=== PATIENT | male | born 1950 | race Caucasian/White ===

== ENCOUNTER 2023-08-22 11:26 | Observation (INO) | payer MEDICARE, OTHER, SELFPAY ==
[2023-08-16 10:18] VITALS: BMI 38.9
--- NOTE | 2023-08-16 12:15 | HPS.HSE ---
Family Physician
<Becky Hannah PA-C - Last Filed: 08/16/23 12:40>
-
Family Physician: NO INTERVIEW UNKNOWN
Chief Complaint
<Becky Hannah PA-C - Last Filed: 08/16/23 12:40>
-
Coronary artery disease. Aortic stenosis.
History of Present Illness
The patient is a 73 year old male presenting today after recent complaints of exertional chest pressure, shortness of breath, and fatigue. He reports that his symptoms have been occurring over the last 8 months. His symptoms are primarily
noted when he walks his dog on an uphill path he typically takes without difficulty previously. He does have a history of coronary artery disease for which he underwent a PCI with stent placement in 1996. He also was diagnosed with aortic stenosis
previously through echocardiogram. His last echocardiogram in April 2023 demonstrated moderate aortic stenosis; this study, however, was deemed technically difficult. Given these diagnoses, it is recommended he undergo a right and left cardiac
catheterization for further symptom evaluation. He denies any current complaints today such as chest pain or shortness of breath at rest, palpitations, nausea, vomiting, diarrhea, lightheadedness, dizziness, cough, sore throat, or fever.
Medical History
<Becky Hannah PA-C - Last Filed: 08/16/23 12:40>
Past Medical History
Past Medical History: Reports Other
Additional Past Medical History:
1. Coronary artery disease/myocardial infarction, status post PCI with stent 1996.
2. Aortic stenosis, moderate per echocardiogram 04/2023.
3. Hypertension.
4. Hyperlipidemia.
5. Moderate tricuspid regurgitation.
6. Asthma, mild and intermittent.
7. Questionable obstructive sleep apnea.
8. Chronic postnasal drip.
9. Colon polyps.
10. Diverticulosis with remote diverticulitis.
11. Hemorrhoids.
12. Non-insulin dependent diabetes with neuropathy.
13. Erectile dysfunction.
14. Obesity, BMI 38.9.
15. Remote history of tobacco abuse.
Past Surgical History: Reports Other
Additional Past Surgical History:
1. PCI with stent.
2. Right wrist tendon repair.
3. Pilonidal cystectomy.
4. Varicocelectomy.
5. Vasectomy.
6. Tonsillectomy.
7. Right vitrectomy.
8. Colonoscopy with polypectomy x4.
Social History
Tobacco: Former Smoker (Former 1 and 1/2 pack per day cigarette smoker who quit tobacco altogether in 1981. )
Alcohol: Other (Reports consuming 1 beer monthly. )
Personal:
Living: Other (He lives with his and daughter in a 2 story home. )
Family History
Family History: Not pertinent
Allergies / Home Medications
Allergy/Medication List:
Home medications:
1. Albuterol sulfate 2 puffs inhaled every 6 hours as needed.
2. Alpha lipoic acid 600 mg p.o. daily.
3. Aspirin 81 mg p.o. daily.
4. Atorvastatin 40 mg p.o. every evening.
5. Berberine 1 capsule p.o. every evening.
6. Cholecalciferol 25 mcg p.o. daily.
7. Cyanocobalamin 500 mcg p.o. daily.
8. Fluticasone-salmeterol 1 inhalation daily as needed.
9. Flonase 1 spray intranasal daily as needed.
10. Lutein 20 mg p.o. daily.
11. Magnesium citrate 500 mg p.o. daily.
12. Metformin 500 mg p.o. twice a day.
13. Metoprolol Succinate 25 mg p.o. daily.
14. [place] 3 1 tablet p.o. daily.
15. Probiotic 60 billion cells p.o. daily.
16. Tart Overton Extract 300 mg p.o. every evening.
Allergies: Penicillin.
Review of Systems
<Becky Hannah PA-C - Last Filed: 08/16/23 12:40>
-
A 12 point ROS was completed and negative except as noted: Yes
Physical Exam
<Becky Hannah PA-C - Last Filed: 08/16/23 12:40>
Vital Signs
Blood pressure 142/79. Heart rate 61. Respirations 18. Pulse ox 96% on room air.
Height 5 feet, 6 inches. Weight 109.3 kg. BMI 38.9.
Physical Exam
General: Well Developed, Well Nourished and No Apparent Distress
HEENT: NormoCephalic, Moist mucous membranes, Atraumatic and PERRLA
Respiratory: Clear
Cardiac: Regular Rhythm and Murmur (Systolic murmur)
GI: Soft, Non Tender, Non Distended and Other (Obese. )
Musculoskeletal: Normal Gait & Station
Skin: Warm and Dry
Neuro: AO x 3 and Nonfocal/grossly intact
Laboratory Results
<Becky Hannah PA-C - Last Filed: 08/16/23 12:40>
-
DIAGNOSTIC STUDIES as of 08/16/2023: White blood cell count 8.0. Hemoglobin 15.4. Platelet count 208. Sodium 138. Potassium 4.9. BUN 21. Creatinine 1.0. Glucose 129. Calcium 9.3. AST 39. ALT 31. Albumin 3.8.
EKG 08/16/2023: Normal sinus rhythm. T wave abnormality, consider lateral ischemia.
Echocardiogram 04/25/2023: Normal left ventricular systolic function. Left ventricular ejection fraction is 60%. Moderate aortic stenosis. Mild tricuspid regurgitation. Estimated pulmonary artery pressure of 25-30 mmHg. Compared to prior study of
Jul 2021, aortic stenosis has progressed.
Impression/Plan
<Becky Hannah PA-C - Last Filed: 08/16/23 12:40>
-
IMPRESSION/PLAN:
1. Coronary artery disease and aortic stenosis: The patient is in need of a right and left cardiac catheterization with Dr. Mitch Mcgraw on 08/22/2023. The benefits and risks of the procedure have been explained to the patient. The patient
understands these risks and wishes to proceed. He is aware to continue his Aspirin up to and including the morning of his procedure. He will hold diabetic medications the morning of his catheterization.
<Mitch Mcgraw, DO - Last Filed: 08/22/23 07:57>
-
IMPRESSION/PLAN:
1. Coronary artery disease and aortic stenosis: The patient is in need of a right and left cardiac catheterization with Dr. Mitch Mcgraw on 08/22/2023. The benefits and risks of the procedure have been explained to the patient. The patient
understands these risks and wishes to proceed. He is aware to continue his Aspirin up to and including the morning of his procedure. He will hold diabetic medications the morning of his catheterization.
Attestation: I have seen and examined the patient. I can confirm Ms. Hannah's findings and I agree with her assessment and plan as documented. 73-year-old male with known aortic valve stenosis and remote PCI for coronary artery disease
presenting with progressive symptoms, concerning for accelerating coronary artery disease versus progression of aortic valve stenosis. We will proceed with right and left heart catheterization, coronary angiography and aortic valve interrogation.
[2023-08-22] VITALS (24 sets, daily range): BP systolic 129–179; BP diastolic 69–109; BMI 38.8
[2023-08-22 08:17] LABS: Glucose - Point of Care 143 mg/dl (70-99)
[2023-08-22] MEDS: LOW STRENGTH ASPIRIN 81 MG PO (08:20)
[2023-08-22] MEDS: NSS 327 ML IV (08:22)
--- NOTE | 2023-08-22 09:55 | ITS.CL.CATH ---
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
Cardiac Catheterization
Procedure Report:
CARDIAC CATHETERIZATION REPORT
Date of Procedure: 08/22/2023
Referring: Garfield Frost M.D.
Indication: Coronary artery disease, aortic valve stenosis, accelerating chest pressure and shortness of breath.
PROCEDURE:
1. Right heart catheterization.
2. Left heart catheterization.
3. Coronary angiography.
4. Aortic valve interrogation.
ACCESS:
6 [place] right radial artery.
5 [place] right antecubital vein.
CATHETERS:
1. 5 [place] balloon wedge.
2. 5 [place] JL 3.5.
3. 5 [place] JR4.
4. 6 [place] Gibran dual-lumen pigtail.
HEMODYNAMIC DATA
Weight (kg): 108.9
AO (s/d/x mmHg): 156/83/115
LV (s/x mmHg): 200/16 (A wave to 28)
PCWP (a/v/x mmHg): 23//16
PA (s/d/x mmHg): 47/20/29
RV (s/x mmHg): 50/11
RA (a/v/x mmHg):
SVC SvO2 (%): 70.6
PA SvO2 (%): 71.8
SaO2 (%): 94.1
Hbg (g/dL): 14.0
CO (L/min): 5.52
CI (L/min/m2): 2.55
TPG (mmHg): 13
PVR (Yang Units): 2.36
SVR (dynes*seconds*cm^-5): 1507
AVO2 Diff (Volume %): 4.25
AV gradient (x, mmHg): 43.41
AV area (cm2): 0.7
LEFT VENTRICULOGRAPHY: Not performed.
CORONARY ANGIOGRAPHY
Dominance: Right.
Left Main: Normal size, trifurcating vessel. There is no coronary artery disease.
LAD: Normal size vessel giving rise to 1 significant diagonal. There are luminal irregularities in the body of the LAD. A patent stent is observed in the mid diagonal. There is approximately 70% in-stent restenosis within this stented segment.
Ramus: Small size, sub-1 mm vessel.
Circumflex: Large size, nondominant vessel that gives rise to 1 large obtuse marginal supplying the majority of the lateral wall. There are minor luminal irregularities.
RCA: Large size, dominant vessel with a significant posterolateral arcade. There is a 90% lesion in the mid RPDA.
INTERVENTIONS
None.
Closure Device: Vascular band for the right radial artery, manual pressure for the right antecubital vein.
Radiation dose (mGy): 486.32
DAP (cm2.Gy): 36.6367
Fluoroscopy time (minutes): 5.3
Sedation time (minutes): 51
CONCLUSIONS:
1. Right dominant circulation with minor luminal irregularities throughout, a patent stent in the mid diagonal with 70% in-stent restenosis and a 90% mid RPDA lesion.
2. Severe aortic valve stenosis (mean gradient 43.41 mmHg, aortic valve area 0.7 cm�).
3. Mildly elevated filling pressures (LVEDP = 16 mmHg, PCWP = 16 mmHg at 108.9 kg) with evidence of diastolic dysfunction (A wave to 28 mmHg).
4. Recent mechanical fall with limited weightbearing on the right leg, concerning for significant trauma.
RECOMMENDATIONS:
1. Expectant management after cardiac catheterization via right radial/antecubital approach.
2. Limited weight bearing on the right wrist for one week.
3. TAVR workup.
4. The patient's symptoms are reminiscent of both heart failure as well as angina. He would likely benefit from both PCI as well as TAVR, though this is deferred at this time due to his recent fall.
5. The patient will obtain x-rays of his leg, possible referral to the emergency room versus direct admission for ambulatory dysfunction.
6. Continue aggressive secondary prevention.
Copy to: Garfield Frost M.D., Jose Booker M.D.
Mitch Mcgraw DO, FACC, FACP
[2023-08-22] MEDS: NSS 1000 IV (10:00)
--- NOTE | 2023-08-22 10:05 | CONSULT.STRU ---
Addendum entered and electronically signed by ABRIL Ashford 09/27/23 09:51:
Patient discussed at SDM meeting today. Patient seen by urology and plan is for left nephrectomy after TAVR. Will not plan on PCI as patient does not have anginal symptoms. If patient develops angina will re-evaluate need to treat. Will schedule
TAVR.
Addendum entered and electronically signed by ABRIL Ashford 09/13/23 09:17:
Patient reviewed at the SDM meeting by the Heart Team. Incidental finding of a 5.8cm left renal mass reviewed. Patient is scheduled for additional CT imaging on 09/15 and Urology Consult on 09/18. Team discussed timing of cardiac intervention given
suspicion for renal cell carcinoma. Will wait to discuss with Urology after consult on . When time to proceed with TAVR will utilize transfemoral approach with a 26mm S3 valve. Will update patient of discussion.
Original Note:
Consultation
-
Date/Time Consultation Requested: 08/22/2023 0930
Date/Time Consultation Performed: 08/22/2023 1015
Requesting Provider: Mitch Mcgraw DO
Performing Provider: ABRIL Breen
Reason for Consultation: /TAVR
Patient History
Physicians
Family Physician: Jose Booker MD
Outpatient Sales Property Manager: Garfield Frost MD
Primary Sales Property Manager: Garfield Frost MD
History of Present Illness
Mr. 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 Echocardiogram from 04/25/2023 is notable for and AV P/M 52/31, DONAVON 1.0, EF 60% PAP 25-30. His cardiac
catheterization is significant for AV gradient (x, mmHg):43.41, AV area (cm2): 0.7 LAD:�Normal size vessel giving rise to 1 significant diagonal.� There are luminal irregularities in the body of the LAD.� A patent stent is observed in the mid
diagonal.� There is approximately 70% in-stent restenosis within this stented segment. RCA:Large size, dominant vessel with a significant posterolateral arcade.� There is a 90% lesion in the mid RPDA. Unfortunately, Mr. Rodriguez lost his footing
and experienced a mechanical fell yesterday fracturing his (R) fibula. He denies any syncope, pre-syncope, or dizziness prior to the fall. He does state that he has experienced SALMON that has been progressive for 6 months.
Discussed the pathophysiology and treatment options of aortic stenosis including SAVR and TAVR. Explained the evaluation process comprising of CT scan, CT surgical consult, dental clearance, and a heart team discussion. Will need to discuss timing
of PCI and TAVR. TAVR booklet, prescriptions, appointments, and contact information given to patient. He will be admitted to the hospital for management of fracture. Allowed for and answered questions at bedside.
Past Medical History
Past Medical History: Asthma, CAD, HTN, Hypercholesterolemia, NIDDM and [place] (Stents in 1996)
peripheral neuropathy, morbid obesity, metabolic syndrome, diverticulosis, ED, colonic polyps, sleep apnea
Past Surgical History
Past Surgical History: Tonsilectomy
pilomidal cyst, vasectomy, varicoceal repair
Dental History
UTD dental care with [facility]) [phone]. Will fax dental clearance form
Family History
Mother: Cause of (heart diseas)
Father: Cause of (cancer)
Social History
Alcohol: Occasional
Drug: None
Tobacco: Former Smoker
Personal:
Living: With Spouse
Allergies
Allergy/AdvReac Type Severity Reaction Status Date / Time
Penicillins Allergy Unknown Verified 08/16/23 10:37
Home Medications
Medication Instructions Recorded Confirmed Type
Probiotic 60 billion cells PO DAILY 08/13/23 08/22/23 History
Tart Overton Extract 300 mg PO QPM 08/13/23 08/22/23 History
albuterol sulfate 90 mcg/actuation 2 puff inhalation Q6HPRN PRN SOB, 08/13/23 08/22/23 History
aerosol inhaler Wheezes
aspirin 81 mg tablet,delayed 81 mg PO DAILY 08/13/23 08/22/23 History
release
atorvastatin 40 mg tablet 40 mg PO QPM 08/13/23 08/22/23 History
berberine-herbal comb no.18 capsule 1 cap PO QPM 08/13/23 08/22/23 History
cholecalciferol (vitamin D3) 25 25 mcg PO DAILY 08/13/23 08/22/23 History
mcg (1,000 unit) capsule (Vitamin
D3)
fluticasone 250 mcg-salmeterol 50 1 inh inhalation DAILYPRN PRN SOB, 08/13/23 08/22/23 History
mcg/dose blistr powdr for Wheezes
inhalation
magnesium citrate 125 mg capsule 500 mg PO DAILY 08/13/23 08/22/23 History
metformin 500 mg tablet 500 mg PO BID 08/13/23 08/22/23 History
metoprolol succinate 25 mg 25 mg PO DAILY 08/13/23 08/22/23 History
tablet,extended release 24 hr
omega 4-tjl-dtm-fish oil 1 tab PO DAILY 08/13/23 08/22/23 History
alpha lipoic acid 600 mg tablet 600 mg PO DAILY 08/16/23 08/22/23 History
cyanocobalamin (vitamin B-12) 500 500 mcg PO DAILY 08/16/23 08/22/23 History
mcg tablet
fluticasone propionate 50 1 spray intranasal DAILYPRN PRN 08/16/23 08/22/23 History
mcg/actuation nasal congestion
spray,suspension
lutein 20 mg tablet 20 mg PO DAILY 08/16/23 08/22/23 History
STS%
STS %: 1.48
Review of Systems
-
History Source: Patient
General: Reports No Symptoms
HEENT: Reports No Symptoms
Respiratory: Reports SOB and SALMON
Cardiac: Reports Chest Pain
Abdomen/GI: Reports No Symptoms
Neurological: Reports No Symptoms
Physical Exam
Vital Signs
Temp 98.2 F 08/22/23 08:00
Temp route: Temporal 08/22/23 08:00
Pulse 60 08/22/23 08:00
Resp Rate 14 08/22/23 08:00
Blood pressure 156/87 08/22/23 08:00
Blood pressure extremity used: Left upper arm 08/22/23 08:00
Position: Sitting 08/22/23 08:00
SaO2 97 08/22/23 08:00
Oxygen Mode of Delivery Room air 08/22/23 08:00
Can the patient verbally communicate their pain? Yes 08/22/23 08:00
Pain scale ratin 08/22/23 08:00
Actual Weight 108.862 kg 08/22/23 08:21
Body Mass Index (BMI) 38.8 08/22/23 08:21
Labs
08/16/2023:
HH: 15.4/45.1
plt: 208K
BUN/Creatinine: 21/1.0
GFR: >60
albumin 3.8
Diagnostic Studies
Echocardiogram 04/25/2023:
Normal left ventricular systolic function. Left ventricular ejection fraction
�is 60%
Aortic Valve
�Calcified aortic valve. Moderate aortic stenosis. Peak gradient 52mmHg/Mean
�gradient 31mmHg - using an LVOT of 1.9cm the estimated aortic valve area is
�1.0cm2.� Mild aortic regurgitation
Cardiac catheterization 08/22/2023:
CONCLUSIONS:
1.� Right dominant circulation with minor luminal irregularities throughout, a patent stent in the mid diagonal with 70% in-stent restenosis and a 90% mid RPDA lesion.
2.� Severe aortic valve stenosis (mean gradient 43.41 mmHg, aortic valve area 0.7 cm�).
3.� Mildly elevated filling pressures (LVEDP = 16 mmHg, PCWP = 16 mmHg at 108.9 kg) with evidence of diastolic dysfunction (A wave to 28 mmHg).
4.� Recent mechanical fall with limited weightbearing on the right leg, concerning for significant trauma.
RECOMMENDATIONS:
1. Expectant management after cardiac catheterization via right radial/antecubital approach.
2. Limited weight bearing on the right wrist for one week.
3.� TAVR workup.
4.� The patient's symptoms are reminiscent of both heart failure as well as angina.� He would likely benefit from both PCI as well as TAVR, though this is deferred at this time due to his recent fall.
5.� The patient will obtain x-rays of his leg, possible referral to the emergency room versus direct admission for ambulatory dysfunction.
6.� Continue aggressive secondary prevention.
Exam
General: Well Developed (obese)
Respiratory: Clear (anteriorly)
Cardiac: Regular Rhythm and Murmur (III/ AFSHIN)
Rectal: Deferred by Provider
Skin: Warm
Psych: Calm
Assessment / Plan
-
Aortic Stenosis
Continue TAVR evaluation
Trend creatinine after contrast (RX given)
TAVR CT scan ()
CT surgical consult ([facility] 09/03)
Frailty testing and KCCQ12 at consult
Dental clearance
Continue ASA
Heart team discussion
CAD: Right dominant circulation with minor luminal irregularities throughout, a patent stent in the mid diagonal with 70% in-stent restenosis and a 90% mid RPDA lesion.
Will need to discuss timing of PCI
Continue aspirin/BB/statin
DM
on metformin (hold for 48H post contrast)
t/c special education paraeducator consult
will get A1c with patts
Data Reviewed
-
EKG: Tracing Personally Visualized and interpreted (NSR with lateral TWI) and Report Reviewed by me
Mounter Saxophones: Report Reviewed by me and Discussed with Physician
Echo: Report Reviewed by me
Radiology: Image Personally Visualized and interpreted ((R) LE x-rays + for fibula fx), Report Reviewed by me ((R) LE x-rays) and Discussed with Physician
Labs: Labs Reviewed by me
Old Records: Reviewed (Dr. Frost's office visit)
Critical Care Time (in minutes): 45
--- NOTE | 2023-08-22 10:52 | W.PN.UPDATE ---
Update Note
Progress Note Update
73yo WM s/p cardiac cath for Severe eval for TAVR. He had a mechanical fall yesterday afternoon on the cement at his house. Today he noted swelling and severe pain with inability to bear weight on his Right leg. He has b/l knee abrasions and
right ankle pain. He did not seek medical evaluation after the fall as he was coming today for his elective cath procedure. Post cath he was sent for Xrays of knee, tib/fib and ankle. He dose have a fracture of the proximal neck of the fibula.
Lucien, his and pt were made aware of the findings. He will be admitted to Hospitalist service with orthopedic evaluation, PT/OT. He will continue outpt w/u for TAVR and timing of PCI will depend on when he can tolerate DAP. He should continue
ASA, statin and hold Metformin 48 hours post cath.
--- NOTE | 2023-08-22 11:00 | HPS.HSE ---
Family Physician
-
Family Physician: Jose Booker
Chief Complaint
-
Right leg pain
History of Present Illness
73-year-old male came in today for elective cardiac catheterization and procedure completed. Postprocedure he was complaining of right lateral leg pain. X-rays confirmed a right fibular fracture. He admits to falling yesterday and injuring his
leg. Denies history of significant fractures. Has been walking at home with a cane since the fall.
Medical History
Past Medical History
Past Medical History: Reports Other
Additional Past Medical History:
CAD/MO
Severe aortic stenosis
Essential hypertension
Hyperlipidemia
Mild intermittent asthma
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
Colon polyps
Diverticulosis
DM2
Internal/external hemorrhoids
Past Surgical History: Reports Other
Additional Past Surgical History:
Right wrist tendon repair
Pilonidal cystectomy
Vasectomy
Varicocelectomy
Right vitrectomy
Tonsillectomy
Polypectomy
Social History
Tobacco: Former Smoker
Alcohol: Occasional
Drug: None
Personal:
Living: With Family
Family History
Family History: Not pertinent
Allergies / Home Medications
Allergies reflects when Allergies were last updated in [facility].
Home Medications with original date entered in [facility]
Allergy/Medication List:
Allergies
Allergy/AdvReac Type Severity Reaction Status Date / Time
Penicillins Allergy Unknown Verified 08/16/23 10:37
Home Medications
Probiotic 60 billion cells PO DAILY 08/13/23
Tart [place] Extract 300 mg PO QPM 08/13/23
albuterol sulfate 90 mcg/actuation aerosol inhaler 2 puff inhalation Q6HPRN PRN SOB, Wheezes 08/13/23
aspirin 81 mg tablet,delayed release 81 mg PO DAILY 08/13/23
atorvastatin 40 mg tablet 40 mg PO QPM 08/13/23
berberine-herbal comb no.18 capsule 1 cap PO QPM 08/13/23
cholecalciferol (vitamin D3) 25 mcg (1,000 unit) capsule (Vitamin D3) 25 mcg PO DAILY 08/13/23
fluticasone 250 mcg-salmeterol 50 mcg/dose blistr powdr for inhalation 1 inh inhalation DAILYPRN PRN SOB, Wheezes 08/13/23
magnesium citrate 125 mg capsule 500 mg PO DAILY 08/13/23
metformin 500 mg tablet 500 mg PO BID 08/13/23
metoprolol succinate 25 mg tablet,extended release 24 hr 25 mg PO DAILY 08/13/23
omega 7-gof-zsu-fish oil 1 tab PO DAILY 08/13/23
alpha lipoic acid 600 mg tablet 600 mg PO DAILY 08/16/23
cyanocobalamin (vitamin B-12) 500 mcg tablet 500 mcg PO DAILY 08/16/23
fluticasone propionate 50 mcg/actuation nasal spray,suspension 1 spray intranasal DAILYPRN PRN congestion 08/16/23
lutein 20 mg tablet 20 mg PO DAILY 08/16/23
Review of Systems
-
History Source: Patient
A 12 point ROS was completed and negative except as noted: Yes
Musculoskeletal: Reports Other (Right lateral leg pain)
Physical Exam
Vital Signs
Vital Signs
Temp Pulse Resp BP Pulse Ox
98.2 F 60 14 156/87 97
08/22/23 08:00 08/22/23 08:00 08/22/23 08:00 08/22/23 08:00 08/22/23 08:00
Physical Exam
General: Well Developed, Well Nourished, No Apparent Distress and Comfortable
HEENT: NormoCephalic, Anicteric and Moist mucous membranes
Respiratory: Wheezes (Faint bilateral expiratory wheezing)
Cardiac: S1/S2 and Regular Rhythm
GI: Soft, Non Tender and Non Distended
Genito-urinary: Deferred by me
Musculoskeletal: No Clubbing, No Cyanosis, No Edema and Other (Mild tenderness to right lateral leg.)
Skin: Warm and Dry
Neuro: AO x 3
Hematologic/Lymphatic: No Lymphadenopathy
Psych: Calm
Impression/Plan
-
Acute traumatic right fibular fracture -due to fall at home. Admit to MedSurg observation. Consult orthopedics. Consult PT/OT. Continue analgesics.
CAD -status post right and left heart catheterization today. Patent stent in the mid diagonal with 70% in-stent restenosis and a 90% mid RPDA lesion noted. No intervention was done. Will need procedure in the near future as per cardiology.
Severe aortic stenosis -May need TAVR in the future. Follow-up with cardiology.
Mild intermittent asthma -continue inhalers.
Hyperlipidemia -continue atorvastatin.
DM2 without hyperglycemia -hold metformin given contrast exposure today. Glucose 143 this morning. Patient states recent hemoglobin A1c was 7%.
Chronic diabetic peripheral neuropathy
Essential hypertension -resume metoprolol.
Obesity due to excess calories
Full code
[2023-08-22 17:05] LABS: Glucose - Point of Care 98 mg/dl (70-99)
[2023-08-22] MEDS: LIPITOR 40 MG PO (17:12)
[2023-08-22] MEDS: LOVENOX 40 MG SC (17:12)
--- NOTE | 2023-08-22 19:08 | W.PN.UPDATE ---
Update Note
Progress Note Update
Pt seen and chart reviewed
With R proximal fibular fracture
No definite evidence of ankle ligament injury at this time
Recommend partial weight bearing R LE (~50% body weight) in brace with use of walker
Have F/U with me as outpt. in ~10-14 days for repeat xrays
thanks
GGMD
[2023-08-22] MEDS: TYLENOL 650 MG PO (20:42)
[2023-08-22 21:22] LABS: Glucose - Point of Care 117 mg/dl (70-99)
[2023-08-23] VITALS (7 sets, daily range): BP systolic 153–176; BP diastolic 82–91; PULSE 68; O2SAT 94
--- NOTE | 2023-08-23 05:56 | PTCARENOTE ---
@ 0335, pt's Manual BP 168/88 Hr 67. ABRIL Briceno notified, ABRIL instructed this RN to give 0800 Toprol at 0600. Will continue plan of care.
[2023-08-23] MEDS: TYLENOL 650 MG PO (06:07)
[2023-08-23] MEDS: TOPROL XL 25 MG PO (06:07)
[2023-08-23 07:48] LABS: Glucose - Point of Care 137 mg/dl (70-99)
[2023-08-23] MEDS: VITAMIN D3 (cholecalciferol) 25 MCG PO (08:01)
[2023-08-23] MEDS: ASPIR LOW (ENTERIC COATED) 81 MG PO (08:01)
[2023-08-23] MEDS: VITAMIN B-12 500 MCG PO (08:01)
[2023-08-23 09:18] LABS: Glycohemoglobin (HgbA1c) 6.7 % (4.0-5.6)
--- NOTE | 2023-08-23 12:31 | W.DS.TRANS ---
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
-
Discharge Instructions:
Discharge Diagnosis/Procedures Cardiac cath; fall with R fibular fracture-
nonoperative management
Diet Low Cholesterol,Diabetic, Carb Controlled
Activity Other activity
Additional Activity Partial weightbearing on the right leg with the
boot
Driving Restrictions No driving for 24 hours
Bathing Restrictions You can take a shower with help
Blood Work PLEASE GET YOUR BLOOD WORK NEXT WEEK
Others Tests YOUR CT SCAN IS SCHEDULED FOR 09/09/2023 @1130 AT
[facility] NOTHING TO EAT OR DRINK [address] YOUR [address] SCAN. PLEASE BRING A LIST OF
YOUR MEDICATIONS. YOU MAY TAKE YOUR MORNING
MEDICATIONS PRIOR TO COMING IN.
YOU WILL NEED DENTAL CLEARANCE PRIOR TO YOUR
VALVE REPLACEMENT
Other Services VN,PT,OT
Stop these medications: Hold Metformin post procedure, resume on Sat am
Instructions:
Stand-Alone Forms: DC Instructions- Cath/EP Lab
Changes to Home Medications: No
Discharge Medications:
DC Medications w/original date entered in [employer]
Probiotic 60 billion cells PO DAILY Supplement 08/13/23
Tart Overton Extract 300 mg PO QPM Supplement 08/13/23
albuterol sulfate 90 mcg/actuation aerosol inhaler 2 puff inhalation Q6HPRN PRN SOB, Wheezes 08/13/23
aspirin 81 mg tablet,delayed release 81 mg PO DAILY Blood Clot Prevention/Tx 08/13/23
atorvastatin 40 mg tablet 40 mg PO QPM High Cholesterol 08/13/23
berberine-herbal comb no.18 capsule 1 cap PO QPM Supplement 08/13/23
cholecalciferol (vitamin D3) 25 mcg (1,000 unit) capsule (Vitamin D3) 25 mcg PO DAILY Supplement 08/13/23
fluticasone 250 mcg-salmeterol 50 mcg/dose blistr powdr for inhalation 1 inh inhalation BID Lung/Breathing Issues 08/13/23
magnesium citrate 125 mg capsule 500 mg PO DAILY Supplement 08/13/23
metoprolol succinate 25 mg tablet,extended release 24 hr 25 mg PO DAILY Blood Pressure 08/13/23
omega 3-vqc-fwc-fish oil 1 tab PO DAILY Supplement 08/13/23
alpha lipoic acid 600 mg tablet 600 mg PO DAILY Supplement 08/16/23
cyanocobalamin (vitamin B-12) 500 mcg tablet 500 mcg PO DAILY Supplement 08/16/23
fluticasone propionate 50 mcg/actuation nasal spray,suspension 1 spray intranasal DAILYPRN PRN congestion 08/16/23
lutein 20 mg tablet 20 mg PO DAILY Supplement 08/16/23
acetaminophen 500 mg tablet (Tylenol Extra Strength) 500 mg PO Q6H #1 tab 08/23/23
ibuprofen 400 mg tablet 400 mg PO Q8H PRN pain #1 tab 08/23/23
metformin 500 mg tablet 500 mg PO BID@0800,1700 Diabetes #0 tabs 08/23/23
Home Medication Changes
Pending Results: No
--- NOTE | 2023-08-23 12:34 | W.PN.HOSP.TC ---
Today's Communication/Plan
-
dc
Assessment / Plan
Assessment / Plan
Acute traumatic right fibular fracture -due to fall at home.� Orthopedic input noted-recommend nonoperative approach. Right leg boot prescribed. Walker prescribed. Bedside commode prescribed. Patient does not like narcotic pain medication.
Advised to take kyouko-scd-gtncy Tylenol and as needed ibuprofen.
Follow with orthopedics in 7 to 10 days.
CAD -status post right and left heart catheterization08/22.� Patent stent in the mid diagonal with 70% in-stent restenosis and a 90% mid RPDA lesion noted.� No intervention was done.� Will need procedure in the near future as per cardiology.
Severe aortic stenosis -May need TAVR in the future.� Follow-up with cardiology.
Mild intermittent asthma -continue inhalers.
Hyperlipidemia -continue atorvastatin.
DM2 without hyperglycemia -hold metformin given contrast exposure today.� Glucose 143 this morning.� Patient states recent hemoglobin A1c was 7%.
Chronic diabetic peripheral neuropathy
Essential hypertension -resume metoprolol.
Obesity due to excess calories
Medically stable for discharge.
Discussed with case management. Home with home health care.
Full code
Anticipated Discharge: Today
Subjective/Interval History
-
Date of Service: August 23, 2023
Right leg currently improved. Minimal pain without weightbearing.
Objective Data
-
Vital Signs:
Vital Signs
Temp Pulse Resp BP Pulse Ox
98.8 F 71 20 153/91 94
08/23/23 11:00 08/23/23 11:27 08/23/23 11:00 08/23/23 11:27 08/23/23 11:00
I&O
08/22/23 08/23/23 08/24/23
06:59 06:59 06:59
Intake Total 1470 / 1470
Output Total 2500 / 2500
Balance -1030 / -1030
Review of Systems
-
Respiratory: Denies Trouble Breathing
Cardiac: Denies Chest Pain or Palpitations
Abdomen/GI: Denies Abdominal Pain, Nausea or Vomiting
Neuro: Denies Dizzy
Physical Exam
-
General: No Apparent Distress
HEENT: Moist Mucous Membranes
Respiratory: Clear to Auscultation
Cardiac: Regular Rhythm and S1/S2
Musculoskeletal: Other (Right leg in boot)
Neuro: AO x 3
[2023-08-23] MEDS: TOPROL XL PO (12:36)
--- NOTE | 2023-08-23 12:36 | W.DCSUMMARY ---
Discharge Summary
Discharge Data
Date of Admission: 08/22/23
Date of Discharge: 08/23/23
-
Pending Results: No
Hospital Course
Primary diagnosis:
Right fibular fracture after a fall at home
Secondary diagnosis:
Coronary artery disease s/p left heart catheterization 08/22
Severe arctic stenosis
Mild intermittent asthma
Hyperlipidemia
Diabetes mellitus type 2
Chronic diabetic peripheral neuropathy Nexis essential hypertension
Hospital course:
Patient came in yesterday Elective left heart catheterization which he finished. While he was here he mentioned about a fall at home and right leg pain ; plain x-ray imaging showed right fibular fracture. Was seen by orthopedics who recommended
nonoperative approach. Was prescribed a light leg boot. Advised partial weightbearing. Was seen by PT OT. Bedside commode and walker prescribed prior to discharge. Advised to see orthopedics in 7 to 10 days.
No cardiac interventions were done during the cardiac catheterization. See the full report for further details.
Consultants on board:
Orthopedics-Dr. Perla
Cardiology-Dr. Mcgraw
Discharge Plan
-
Patient Disposition: Home with Home Care
Discharge Diagnosis/Procedures: Cardiac cath; fall with R fibular fracture-nonoperative management
Diet: Low Cholesterol and Diabetic, Carb Controlled
Activity: Other activity
Additional Activity: Partial weightbearing on the right leg with the boot
Driving Restrictions: No driving for 24 hours
Bathing Restrictions: You can take a shower with help
Blood Work: PLEASE GET YOUR BLOOD WORK NEXT WEEK
Others Tests: YOUR CT SCAN IS SCHEDULED FOR 09/09/2023 @[address] [facility]. NOTHING TO EAT OR DRINK [address] SCAN. PLEASE BRING A LIST OF YOUR MEDICATIONS. YOU MAY TAKE YOUR MORNING MEDICATIONS PRIOR TO COMING IN.
YOU WILL NEED DENTAL CLEARANCE PRIOR TO YOUR VALVE REPLACEMENT
Other Services: VN, PT and OT
Stop these medications:: Hold Metformin post procedure, resume on Sat am
Stand Alone Forms: DC Instructions- Cath/EP Lab
Referrals:
Daniel Perla MD [Active] - in one to two weeks
Garfield Frost MD [Active] - 09/11/23 2:00 pm
Jose Booker MD [Family Provider] - in one to two months
Jourdan Martin MD [Active] - 09/03/23 9:30 am
Prescriptions:
New
acetaminophen [Tylenol Extra Strength] 500 mg tablet
500 mg PO Q6H Qty: 1 0RF
Rx Instructions:
take it scheduled for a week ;buy over the counter
ibuprofen 400 mg tablet
400 mg PO Q8H PRN (Reason: pain) Qty: 1 0RF
Rx Instructions:
take if tylenol helping
Continued
fluticasone propion-salmeterol 250-50 mcg/dose Blister With Device
1 inh INHALATION BID
albuterol sulfate 90 mcg/actuation Hfa Aerosol Inhaler
2 puff INHALATION Q6HPRN PRN (Reason: SOB, Wheezes)
atorvastatin 40 mg Tablet
40 mg PO QPM
aspirin 81 mg Tablet,Delayed Release (Dr/Ec)
81 mg PO DAILY
metoprolol succinate 25 mg Tablet Extended Release 24 Hr
25 mg PO DAILY
cholecalciferol (vitamin D3) [Vitamin D3] 25 mcg (1,000 unit) Capsule
25 mcg PO DAILY
berberine-herbal comb no.18 Capsule
1 cap PO QPM
Patient Comments:
Berberine,[place] Cinnamon, Chromium Picolinate, Tumeric Curcumin, Apple Cider Vinegar
magnesium citrate 125 mg Capsule
500 mg PO DAILY
Probiotic
60 billion cells PO DAILY
Tart Overton Extract
300 mg PO QPM
omega 5-ewk-ego-fish oil
1 tab PO DAILY
Patient Comments:
3600 Fish Oil; EPA-1296; DHA- 864
cyanocobalamin (vitamin B-12) 500 mcg Tablet
500 mcg PO DAILY
fluticasone propionate 50 mcg/actuation [place],Suspension
1 spray INTRANASAL DAILYPRN PRN (Reason: congestion)
lutein 20 mg Tablet
20 mg PO DAILY
alpha lipoic acid 600 mg Tablet
600 mg PO DAILY
metformin 500 mg Tablet
500 mg PO BID@0800,1700 Qty: 0 0RF
Rx Instructions:
resume on tomorrow
Discharge Orders:
Discharge Patient (As Directed); Ordered 08/23/23
Ordered By: Shmuel Joseph
[2023-08-23 12:39] LABS: Glucose - Point of Care 100 mg/dl (70-99)
--- NOTE | 2023-08-23 14:12 | VNURNOTE ---
Home Health Liaison met with [facility] to [facility], visits, schedule and purpose. Patient verbalized he's not interested in our services. This author attempted to further explain benefits of VN and home therapy. Patient still
refusing services. [facility] brochure provided with contact information if he changes his mind. Primary CM Janina notified.
--- NOTE | 2023-08-23 16:12 | CM ---
CM following re: d/c planning
Chart reviewed
CM met with the patient at bedside; IA completed
Pt is here as observation, VALERIO letter was reviewed; however the patient refused to sign it
Pt states he, his spouse, & daughter reside in a 2SH with 2STE
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
Pt has no past hx of VN/SNF and the only DME owned is a spc
Pt has prescription coverage and rx's are filled at [facility]
Pt PCP-Jose Booker
Per PT/OT assessments; post d/c recommendation is for HH
CM spoke with Joann/clinical liaison for VN and she spoke with patient who refused home care services at this time
Pt is medically stable for d/c and will be discharged home with no needs
PLAN; d/c home no needs
== END 2023-08-23 14:22 | disposition home or self-care (01) ==
LOC: 3 WEST ACU 11:26
PROVIDERS: ADMITTING PHYSICIAN Hospitalist; ATTENDING PHYSICIAN Internal Medicine; CONSULT PHYSICIAN Orthopaedic Surgery Hand Surgery; FAMILY PHYSICIAN Family Medicine
DX: S82.401A Unspecified fracture of shaft of right fibula, initial encounter for closed fracture (principal); R07.89 Other chest pain; R06.02 Shortness of breath; E11.42 Type 2 diabetes mellitus with diabetic polyneuropathy; I10 Essential (primary) hypertension; E78.5 Hyperlipidemia, unspecified; T82.855A Stenosis of coronary artery stent, initial encounter; G47.33 Obstructive sleep apnea (adult) (pediatric); R53.83 Other fatigue; I08.2 Rheumatic disorders of both aortic and tricuspid valves; I25.10 Atherosclerotic heart disease of native coronary artery without angina pectoris; M79.604 Pain in right leg; J45.20 Mild intermittent asthma, uncomplicated; W18.30XA Fall on same level, unspecified, initial encounter; Y93.9 Activity, unspecified; Y92.009 Unspecified place in unspecified non-institutional (private) residence as the place of occurrence of the external cause; E78.00 Pure hypercholesterolemia, unspecified; Y84.0 Cardiac catheterization as the cause of abnormal reaction of the patient, or of later complication, without mention of misadventure at the time of the procedure; Y92.9 Unspecified place or not applicable; S80.212A Abrasion, left knee, initial encounter; S80.211A Abrasion, right knee, initial encounter; M25.571 Pain in right ankle and joints of right foot; E66.01 Morbid (severe) obesity due to excess calories; Z95.5 Presence of coronary angioplasty implant and graft; I25.2 Old myocardial infarction; Z87.19 Personal history of other diseases of the digestive system; Z86.010 Personal history of colon polyps; Z68.38 Body mass index [BMI] 38.0-38.9, adult; Z87.891 Personal history of nicotine dependence; Z79.51 Long term (current) use of inhaled steroids; Z88.0 Allergy status to penicillin; Z79.82 Long term (current) use of aspirin; Z79.84 Long term (current) use of oral hypoglycemic drugs
CPT/HCPCS: 73560; 73590; 73610; 82962; 83036; 93460; 97163; 97166; C1769; C1894; G0378; Q9967

== ENCOUNTER → 2023-09-09 11:22 | Outpatient (REF) | payer MEDICARE, OTHER, SELFPAY | LOC: RAD 11:22 | PROVIDERS: ATTENDING PHYSICIAN Nurse Practitioner Acute Care; FAMILY PHYSICIAN Family Medicine | DX: I35.0 Nonrheumatic aortic (valve) stenosis (principal) | CPT/HCPCS: 74174; 75572; Q9967 ==

== ENCOUNTER → 2023-09-13 08:20 | Outpatient (REF) | payer MEDICARE, OTHER, SELFPAY ==
[2023-09-13 12:24] LABS: Blood Urea Nitrogen 22 mg/dl (9-20); Carbon Dioxide 26 mmol/L (22-30); Chloride 105 mmol/L (98-107); Glucose 133 mg/dl (70-99); Potassium 4.9 mmol/L (3.5-5.1); Sodium 136 mmol/L (135-145); eGFR > 60.00
== END ==
LOC: HWLAB 08:20
PROVIDERS: ATTENDING PHYSICIAN Nurse Practitioner Adult Health; FAMILY PHYSICIAN Family Medicine
DX: I35.0 Nonrheumatic aortic (valve) stenosis (principal)
CPT/HCPCS: 36415; 80048

== ENCOUNTER → 2023-09-16 13:20 | Outpatient (REF) | payer MEDICARE, OTHER, SELFPAY | LOC: RAD 13:20 | PROVIDERS: ATTENDING PHYSICIAN Nurse Practitioner Adult Health; FAMILY PHYSICIAN Family Medicine | DX: N28.89 Other specified disorders of kidney and ureter (principal) | CPT/HCPCS: 74178; Q9967 ==

== ENCOUNTER 2023-10-24 09:34 | Inpatient (IN) | payer MEDICARE, OTHER, SELFPAY ==
--- NOTE | 2023-10-15 07:49 | HPS.HSE ---
Family Physician
-
Family Physician: Jose Booker
Cardiology: Garfield Frost
Chief Complaint
-
Shortness of breath and fatigue. Aortic stenosis
History of Present Illness
Mr. Mario Rodriguez is a very pleasant 73-year-old gentleman who presents for his pre-admission testing for TAVR. Echocardiogram from 04/25/2023 was notable for peak/mean gradients of 52/31 mmHg effectively with calculated DONAVON of 1.0. His LVEF is
60%. Cardiac catheterization performed on 08/22/2023 demonstrated a mean aortic valve gradient of 43.41 with a calculated DONAVON of 0.7. The patient's prior diagonal stent had 70% in-stent restenosis. The patient also had a 90% mid RPDA lesion. The
remainder of his coronary bed had only minor luminal irregularities. The patient's TAVR CT scan was completed and did show a 5.8 cm heterogeneous soft tissue mass in the medial aspect of the upper pole and interpolar region of the left kidney which
is new when compared with the 05/19/2007 examination and high-level suspicion for renal cell carcinoma. He did see urology and plan is for nephrectomy following TAVR. No metastatic disease was noted on additional imaging. Dental clearance is
complete. From a symptomatic standpoint, the patient reports escalating exertional chest pressure, shortness of breath, and easy fatigability. This has been worsening over the previous 8 months. His symptoms are most pronounced when he is walking
along an incline while walking his dog. Patient was presented to the heart team at the shared decision making meeting and the team felt TAVR utilizing a S3 valve via transfemoral access was the appropriate treatment. Plan to continue with medical
therapy with no plan for PCI prior to TAVR or prior to nephrectomy due to patient will require DAPT which would delay surgery. Post nephrectomy, as patient recovers and becomes more active, if he has increased exertional symptoms which are not
controlled on medical therapy then may consider PCI at that time.
Reviewed TAVR procedure and risks including PPM, bleeding and stroke. Allowed for an answered questions. Patient will arrive at 0930 on 4/18 but aware he will receive a call on to confirm and answer any questions. He will take his aspirin prior
to arrival.
Medical History
Past Medical History
Past Medical History: Reports Asthma, CAD (SD and PCI 1996), Cancer (Renal cancer), HTN, Hypercholesterolemia, NIDDM and Valvular Disease (Aortic stenosis)
Additional Past Medical History:
Peripheral neuropathy
Morbid obesity
Metabolic syndrome
Diverticulosis
ED
Colon polyps
Tobacco abuse- quit 1986
Variocele
Pilonidal cyst
Sleep apnea
Past Surgical History: Reports Tonsilectomy
Additional Past Surgical History:
Vasectomy
Pilonidal cyst removed
Vasectomy
Varicocele repair
Cardiac cath with PCI 2016
Social History
Tobacco: Former Smoker (Quit 1986)
Alcohol: Occasional
Drug: None
Personal:
Living: With Family ()
Employment: Retired
Family History
Family History: CAD (Mother) and Cancer (Father -Lung cancer)
Allergies / Home Medications
Allergies reflects when Allergies were last updated in [employer].
Home Medications with original date entered in [employer]
Allergy/Medication List:
Allergies:
Penicillin - told as a child, reaction unknown
Medications:
Albuterol Sulfate HFA 108 (90 Base) MCG/ACT Aerosol Solution 1 puff as needed Inhalation every 4 hrs.
Alpha Lipoic Acid 600 MG Capsule 1 capsule Orally Once a day.
Apple Cider Vinegar.
Aspirin 81 MG Tablet Chewable 1 tablet Orally Once a day
Atorvastatin Calcium 40 MG Tablet TAKE 1 TABLET BY MOUTH EVERY DAY.
Fish Oil 1000 MG Capsule 1 capsule Orally Once a day.
Fluticasone-Salmeterol 250-50 MCG/ACT Aerosol Powder Breath Activated 1 puff Inhalation Twice a day.
Lutein 20 MG Capsule 1 capsule with a meal Orally Once a day.
Magnesium 500 MG Tablet 1 tablet with a meal Orally Once a day.
metFORMIN HCl 500 MG Tablet TAKE 1 TABLET BY MOUTH TWO TIMES DAILY WITH MORNING AND EVENING MEALS.
Methyl B-12(Methylcobalamin) 500 MCG Tablet Chewable as directed Orally.
Metoprolol Succinate ER 25 MG Tablet Extended Release 24 Hour TAKE 1 TABLET BY MOUTH EVERY DAY.
tumeric curcumin.
chromium picolinate.
ceylon cinnamon.
Probiotic - Capsule as directed Orally.
Tart Overton.
Vitamin D3 Capsule take 1 by Oral route every day.
Review of Systems
-
History Source: Patient
Constitutional: Reports No Symptoms
EENT: Reports No Symptoms
Respiratory: Reports No Symptoms
Cardiac: Reports See HPI
Abdomen/GI: Reports No Symptoms
: Reports Frequency
Musculoskeletal: Reports Muscle Stiffness (recent right fibula fracture)
Skin: Reports No Symptoms
Neurological: Reports Numbness (h/o peripheral neuropathy)
Endocrine: Reports No Symptoms
Hematologic/Lymphatic: Reports No Symptoms
Psych: Reports No Symptoms and Calm
Physical Exam
Physical Exam
General: Well Developed, Well Nourished, No Apparent Distress and Comfortable
HEENT: NormoCephalic and Moist mucous membranes
Respiratory: Clear and Non Labored Respirations
Cardiac: S1/S2, Regular Rhythm and Murmur (Grade II/)
Breast: Deferred by me
GI: Soft, Non Tender, Non Distended and Normal Bowel Sounds
Rectal: Deferred by Provider
Genito-urinary: Deferred by me
Musculoskeletal: No Clubbing and No Edema
Skin: Warm
Neuro: AO x 3 and No Motor Deficits
Psych: Calm and Intact Judgment/Insight
Laboratory Results
-
H/H: 14.5/42.6
BUN/Creat: 21/1.1
GFR: >60
Alb: 4.4
Urinalysis: Negative
Data Reviewed
-
Diagnostic Radiology: Report Reviewed by me (Chest X-ray)
CT Scan: Report Reviewed by me
Medical Tests (Nuc Med, Echo, EKG etc): Report Reviewed by me (EKG- no conduction issues noted)
Lab Data: Labs Reviewed by me
Old Records: Reviewed (CT consult, urology consult and cardiology consult in [facility])
Impression/Plan
-
IMPRESSION:
Severe Aortic Stenosis
PLAN:
TF-TAVR utilizing a 26mm S3 valve via Transfemoral Access
ASA 81mg daily
POD 1 and 30 Day Follow Up Echocardiogram
Cardiac rehab consult
[2023-10-15 11:56] VITALS: BMI 35.3
[2023-10-15 12:30] LABS: % Basophils 1.1 % (0-2); % Eosinophils 3.3 % (0-6); % Immature Granulocytes 0.3 % (0-0.5); % Lymphocytes 25.1 % (20.5-51.1); % Monocytes 10.7 % (1.7-9.3); % Neutrophils 59.5 % (42.2-75.2); Absolute Basophils 0.1 10^3/uL (0-0.2); Absolute Eosinophils 0.2 10^3/uL (0-0.7); Absolute Lymphocytes 1.8 10^3/uL (1.2-3.4); Absolute Monocytes 0.8 10^3/uL (0.1-0.6); Absolute Neutrophils 4.2 10^3/uL (1.4-6.5); Hematocrit 42.6 % (39.0-52.0); Hemoglobin 14.5 g/dL (13.0-18.0); Mean Corpuscular Hgb 28.8 pg (27.0-31.0); Mean Corpuscular Volume 84.5 fL (80.0-94.0); Mean Platelet Volume 9.4 fL (7.4-10.4); Nucleated Red Blood Cells % 0 % (-); Platelet Count 199 10^3/uL (130-400); Red Blood Cell Count 5.04 10^6/uL (4.70-6.10); Red Cell Dist. Width 14.2 % (11.5-14.5)
[2023-10-15 12:31] LABS: Urine Albumin Negative (Neg - Trace); Urine Bilirubin Negative (Negative); Urine Character Clear (Clear); Urine Color Yellow; Urine Glucose Negative (Negative); Urine Ketone Negative (Negative); Urine Leukocyte Negative (Negative); Urine Nitrite Negative (Negative); Urine Occult Blood Negative (Negative); Urine Specific Gravity 1.015 (<1.030); Urine Urobilinogen Negative (Neg - 1+)
[2023-10-15 12:40] LABS: APTT 24.9 Sec (23.4-35.0); INR 1.07; PT 13.7 Sec (11.4-14.6)
[2023-10-15 13:01] LABS: ALT (SGPT) 30 U/L (0-50); AST (SGOT) 34 U/L (17-59); Albumin 4.4 g/dl (3.5-5.0); Alkaline Phosphatase 115 U/L (38-126); Blood Urea Nitrogen 21 mg/dl (9-20); Calcium 9.5 mg/dl (8.4-10.2); Carbon Dioxide 27 mmol/L (22-30); Chloride 100 mmol/L (98-107); Direct Bilirubin 0.4 mg/dl (0.0-0.4); Estimated Creatinine Clearance 70 ml/min; Glucose 117 mg/dl (70-99); Potassium 4.2 mmol/L (3.5-5.1); Sodium 136 mmol/L (135-145); Total Bilirubin 1.2 mg/dl (0.2-1.3); Total Protein 6.9 g/dl (6.3-8.2); eGFR > 60.00
[2023-10-15 13:07] LABS: NT-proBNP 98.3 pg/ml
[2023-10-15 13:35] LABS: Glycohemoglobin (HgbA1c) 6.5 % (4.0-5.6)
--- NOTE | 2023-10-15 14:33 | CM ---
Chart reviewed. Met with the patient in PAT. Reviewed preoperative and postoperative instructions, along with showering guidelines. Gave patient 2 soaps. Patient is agreeable to a home visit by CT Transitional RN. Patient is independent of
ADLS, lives with his and adult daughter in a 2 STH, 3 DANIELLE, 0 DME. Patient fell back on 08/21 and was NWB as 6 weeks. He can bear weight now, but has been living on the 1st floor. Patient with a recent diagnosis of kidney cancer. Patient with
a preoperative evaluation on 11/03. Plan is for the patient to return home with CT Transitional RN.
[2023-10-24] VITALS (20 sets, daily range): BP systolic 93–162; BP diastolic 62–89; BMI 35.5
[2023-10-24 10:08] LABS: Hematocrit 41.9 % (39.0-52.0); Hemoglobin 14.1 g/dL (13.0-18.0); Mean Corp Hgb Conc. 33.7 g/dL (33.0-37.0); Mean Corpuscular Hgb 28.9 pg (27.0-31.0); Mean Corpuscular Volume 85.9 fL (80.0-94.0); Mean Platelet Volume 9.9 fL (7.4-10.4); Platelet Count 214 10^3/uL (130-400); Red Blood Cell Count 4.88 10^6/uL (4.70-6.10); Red Cell Dist. Width 13.8 % (11.5-14.5); White Blood Cell Count 8.6 10^3/uL (4.8-10.8)
[2023-10-24 10:09] LABS: COVID-19 Antigen Negative (Negative)
[2023-10-24 10:13] LABS: Glucose - Point of Care 103 mg/dl (70-99)
--- NOTE | 2023-10-24 12:18 | W.CVOR.SURPR ---
CVOR Surgeon Immed Pre Op
-
I have examined this patient prior to performance of the scheduled procedure.
The patient's condition is unchanged from the time of the dictated/written History and
Physical and the patient is able to undergo the scheduled procedure.
[2023-10-24] MEDS: ANCEF 10 IV (12:51)
[2023-10-24 14:00] LABS: ACT-LR - POC 342 Seconds (116-155)
--- NOTE | 2023-10-24 14:15 | ITS.CL.TAVR ---
Radio Station Manager - TAVR Report
TAVR PRocedure
Procedure Report:
TRANSCATHETER AORTIC VALVE REPLACEMENT REPORT
Date: 10/24/2023
Referring physician: Garfield Frost M.D.
Preop diagnosis: Severe aortic valve stenosis.
Postop diagnosis: Severe aortic valve stenosis.
Procedure: Transcatheter aortic valve replacement (TAVR) using a # 26 Gonzales JOAN S3 Ultra.
Operators: Mitch Mcgraw DO, Jourdan Martin M.D.
Findings: Severely calcified and stenotic aortic valve.
Anesthesia: Conscious sedation was provided by the anesthesia staff.
Estimated blood loss: Negligible.
Complications: None.
Condition: Stable
Procedure:
The patient was brought to the cardiac laborer heading after consent and was prepped and draped in standard sterile fashion. Conscious sedation was provided by the anesthesia staff. After a 'Time Out,' bilateral common femoral arteries and the left
common vein were access using a modified Seldinger technique with a micropuncture kit under ultrasound guidance. A 6 Sami sheath was placed in the left femoral vein. Angiography performed through the micropuncture sheath confirmed satisfactory
arterial placement in the left common femoral artery. The micropuncture sheath was replaced with a 6Fr sheath in the left VICE PRESIDENT OF COMPLIANCE. Angiography through the micropuncture kit confirmed satisfactory arterial placement in the right common femoral artery.
The right VICE PRESIDENT OF COMPLIANCE was dilated with an 8FR dilator and preclosed with two Perc-Close devices. An 8Fr sheath was placed in the RCFA. A temporary pacing wire was advanced through the left femoral vein and into the right ventricle. The pacemaker
demonstrated good capture and was set to back up. A 5Fr pigtail catheter was advanced through the left femoral sheath and seated in the right coronary cusp. Angiography confirmed co-planar angles.
An AL-1 catheter was advanced through the 8Fr sheath, the J wire was exchanged for an Amplatz Superstiff wire and the catheter and the 8 Fr sheath was removed. The 14 Fr Gonzales E-sheath was inserted over the wire and into the descending aorta.
Heparin 9000 units was given. The JOAN S3 was prepared on the back table. Orientation was confirmed by both physicians. The AL-1 catheter was re-advanced through the E-sheath to the level of the ascending aorta. The Superstiff wire was removed
and a soft tip straight wire was advanced through the AL-1. The straight tip wire was used to cross the aortic valve and the catheter was advanced into the left ventricle. The straight wire was removed and an Amplatz Extrastiff wire with curved
proximal end was advanced through the catheter and into the left ventricle. The wire was seated in the apex and the catheter was removed. ACT was checked and confirmed to be > 250 seconds.
The valve was advanced over the Extrastiff wire and into the descending aorta. The balloon was withdrawn and the valve was mounted on the balloon. The valve was advanced over the aortic arch and into the aortic valve annulus. The pusher device
was withdrawn to allow for balloon expansion. Low volume aortography confirmed good position of the valve. The valve was deployed during rapid ventricular pacing. Echocardiography and aortography confirmed a good result with no aortic valve
insufficiency and a 5 mmHg mean gradient. The valve deployment system was removed. The Gonzales E sheath was then removed and hemostasis obtained with the two Perc-Close sutures. Final angiography demonstrated no evidence of ileofemoral
dissection/perforation and good runoff below the common femoral artery. The pacemaker and the pigtail catheter were removed. The left femoral artery sheath was removed using a 6 Sami Angio-Seal. The left femoral venous sheath was removed and
manual pressure was applied with excellent hemostasis.
Radiation
Dose (mGy): 489.76
DAP (cm2.Gy): 57.6024
Fluoroscopy time (minutes): 8.6
TAVR Echo Gradient (mmHg): 5
LV (s/x, mmHg): 176/20
TAVR Cath Gradient (mmHg): Not obtained
Conclusions:
1. Successful placement of # 26 Joan S3 Ultra aortic valve via right transfemoral approach with no acute complications.
Mitch Mcgraw, DO, FACC, FACP
Copy to: Jourdan Martin M.D., Garfield Frost M.D., Jose Booker M.D.
--- NOTE | 2023-10-24 14:16 | W.IMMPOSTOP ---
Addendum entered and electronically signed by Jourdan Martin MD 10/24/23 14:28:
Dictated: [id number]
Original Note:
Surgical Immed Post Op Note
-
STRUCTURAL HEART PROCEDURE NOTE: TAVR
Preoperative Dx:
Severe aortic stenosis (P/M: 52/31, mean 43.4 at cath)
HTN/HLD
CAD/RI
Peripheral neuropathy
Type II DM
Asthma
Diverticulosis
ED
Colon polyps
H/O head injury
AMEYA
Morbid obesity (BMI 38.9)
Postoperative Dx:
Same
Procedures:
1) L CFV access w/ U/S & fluoroscopic guidance, micropuncture technique, 6Fr sheath placement
2) L CHEMISTRY TEACHER access w/ tactile, U/S, & fluoroscopic guidance, micropuncture technique, limited angiography, 6Fr sheath placement
3) R CHEMISTRY TEACHER access w/ tactile, U/S, & fluoroscopic guidance, micropuncture technique, limited angiography, 8Fr dilator placement
4) Perclose placement x 2 into R CHEMISTRY TEACHER, 8Fr sheath placement
5) Placement of temporary RV pacing wire w/ threshold testing
6) Placement of pigtail catheter in RCC w/ limited aortography & confirmation of coplanar valve deployment angle
7) Placement of Gonzales E-sheath via R CHEMISTRY TEACHER
8) Wire purchase across stenotic AV; LVEDP assessment - 20mmHg
9) R TF TAVR w/ placement of 26mm MUNA 3 valve
10) Completion aortography
11) Completion TTE (No PVL/AI, mean gradient 5mmHg)
12) Removal of Gonzales E-sheath w/ mgmt of R CHEMISTRY TEACHER w/ perclose x 2; manual pressure
13) Completion R ileofemoral angiography
14) Removal of L CHEMISTRY TEACHER 6Fr sheath w/ mgmt w/ 6Fr angioseal; manual pressure
15) Removal of temporary pacing wire & L CFV sheath w/ mgmt w/ manual pressure
Manager Military:
Dr. Mitch Mcgraw
Cardiac Surgeon:
Dr. Jourdan Martin
Anesthesia:
MAC & local to B/L groins
Implants:
Gonzales Lifesciences,[id number], 26mm, [id number]
Perclose x 2
6Fr angioseal x 1
Cath Data:
Start: 1331hrs, Deploy: 1359hrs, End: 1410hrs
FT: 8.6min, mGy: 489.76, DAP: 57.6024, Contrast: 80mL
Post-TTE: No AI/PVL, mean gradient 5mmHg
Complications:
None
Condition:
Stable/guarded to recovery
--- NOTE | 2023-10-24 14:19 | W.PN.UPDATE ---
Update Note
Progress Note Update
Reviewed Mr. Rodriguez with the heart team in the preTAVR SDM meeting and confirmed a 26mm S3 via (R) TF access. Patient will resume aspirin post TAVR. LVEDP 20mmHg. #26mm S3 (serial# [id number]) successfully deployed via right transfemoral access.
Post implant MG 5mmHg.
[2023-10-24 15:08] LABS: Glucose - Point of Care 99 mg/dl (70-99)
[2023-10-24] MEDS: ANCEF IV (15:44)
--- NOTE | 2023-10-24 16:13 | CM ---
Chart reviewed. Patient is in the OR today. Patient is independent of ADLS, lives with his and daughter in a 2 STH, 3 DANIELLE, 0 DME. Plan is for the patient to return home with CT Transitional RN. CM to follow
[2023-10-24] MEDS: LIPITOR 40 MG PO (18:11)
[2023-10-24 18:26] LABS: Glucose - Point of Care 96 mg/dl (70-99)
--- NOTE | 2023-10-24 18:55 | PTCARENOTE ---
Pt received from recovery area post TAVR. Pt c/o mild sore throat. Bilateral femoral sites with dry and intact dressings, no sign of bleeding or hematoma. Telemetry shows sinus rossi 39-50's, SBP's 100-140. Pt identified as a fall risk after a leg
fracture and fall in August 2023, pt states he will call for assistance.
[2023-10-24] MEDS: ANCEF 5 IV (20:24)
[2023-10-24] MEDS: FLUSH (NSS) 2 FLUSH IV (20:24)
[2023-10-24] MEDS: TYLENOL 650 MG PO (20:29)
[2023-10-24] MEDS: ANESTHETIC LOZENGE 1 LOZENGE PO (20:45)
[2023-10-24 21:43] LABS: Glucose - Point of Care 87 mg/dl (70-99)
--- NOTE | 2023-10-25 01:28 | PTCARENOTE ---
Pt. remains NSR on the monitor, VSS. Only complaint of pain was a sore throat from intubation, Cepacol lozenge and Tylenol given, sore throat much improved per. pt. B/L groin site CDI without S&S hematoma, bilateral pedal pulses palpable. Pt. OOB
at approx 2200 to void, reports he had no difficulty doing so. Pt. currently sleeping.
[2023-10-25 02:45] VITALS: BP 148/80
[2023-10-25 03:13] LABS: Hematocrit 38.9 % (39.0-52.0); Hemoglobin 13.3 g/dL (13.0-18.0); Mean Corp Hgb Conc. 34.2 g/dL (33.0-37.0); Mean Corpuscular Hgb 29.2 pg (27.0-31.0); Mean Corpuscular Volume 85.5 fL (80.0-94.0); Mean Platelet Volume 9.2 fL (7.4-10.4); Platelet Count 170 10^3/uL (130-400); Red Blood Cell Count 4.55 10^6/uL (4.70-6.10); Red Cell Dist. Width 13.8 % (11.5-14.5); White Blood Cell Count 8.9 10^3/uL (4.8-10.8)
[2023-10-25 03:41] LABS: Blood Urea Nitrogen 22 mg/dl (9-20); Calcium 8.8 mg/dl (8.4-10.2); Carbon Dioxide 22 mmol/L (22-30); Chloride 103 mmol/L (98-107); Estimated Creatinine Clearance 97 ml/min; Glucose 100 mg/dl (70-99); Potassium 4.3 mmol/L (3.5-5.1); Sodium 135 mmol/L (135-145); eGFR > 60.00
[2023-10-25 03:49] VITALS: BMI 34.9
--- NOTE | 2023-10-25 05:24 | W.PN.CT ---
Addendum entered and electronically signed by Jourdan Martin MD 10/25/23 08:16:
I saw and examined the patient.
The PA's note was reviewed and I agree with the note.
Comment:
Check echocardiogram
ASA only anticoagulation
D/C planning for hopefully later today
Original Note:
Today's Communication / Plan
-
-pod #1
-no issues overnight
-sinus rossi mid 40s-50s overnight. No pauses
-follow ECG
-Echo today
-current meds (ASA, Lipitor, Toprol 25 qd)
-encourage IS, OOB, ambulate
Assessment / Plan
-
- Severe symptomatic - s/p R TF TAVR w/ placement of 26mm MUNA 3 valve on 10/24/23, pod #1
- LVEDP assessment - 20mmHg
- Post-TTE: No AI/PVL, mean gradient 5mmHg
- HTN/HLD
- CAD/ID
- Peripheral neuropathy
- Type II DM
- Asthma
- Diverticulosis
- ED
- Colon polyps
- H/O head injury
- AMEYA
- Class 2 obesity (BMI 38.9)
Discussed patient care with: Nursing and Care Team
Subjective
Procedure
- s/p R TF TAVR w/ placement of 26mm MUNA 3 valve on 10/24/23
-
Date of Service: October 25, 2023
Objective Data
-
PT 13.7 Sec (11.4-14.6) 10/15/23 12:10
INR 1.07 10/15/23 12:10
APTT 24.9 Sec (23.4-35.0) 10/15/23 12:10
Vital Signs
Vital Signs
Temp Pulse Resp BP Pulse Ox
97.9 F 53 16 121/64 95
10/24/23 22:27 10/24/23 22:45 10/24/23 22:27 10/24/23 22:27 10/24/23 22:27
CT Intake/Output/Weight
10/24/23 10/24/23 10/25/23
06:59 18:59 06:59
Intake Total 1240 / 1240
Output Total 600 / 600
Balance 640 / 640
SaO2: 95
Physical Exam
-
General: Awake and AOx3
Cardiovascular: Regular rate & rhythm, No Murmurs and No Rub
Respiratory: Decreased Breath Sounds
Incision: Other (groins are cdi, soft, nontender, no hematoma b/l)
Extremities: Other (trace edema LLE (prior injury))
Data Reviewed
-
Lab Results: Results Reviewed
Medications: Active Meds Reviewed
Chest X-Ray: Report Reviewed and Image Reviewed
ECG: Report Reviewed and Image Reviewed
[2023-10-25 07:38] VITALS: BP 151/70
--- NOTE | 2023-10-25 07:59 | W.PN.ANS.POP ---
Anesthesia Post Operative
- Anesthesia Post Op Note
Vital Signs Stable-See Nursing Note: Yes
Airway Patent: Yes
Adequate Pain Control: Yes
Change in Mental Status: No
Current Postoperative Nausea & Vomiting: No
Anesthesia Complications: No
General Anesthetic Recall: No
Unplanned Admission: No
Post Op Hydration Adequate: Yes
--- NOTE | 2023-10-25 08:10 | W.DCSUMMARY ---
Discharge Summary
Discharge Data
Date of Admission: 10/24/23
Date of Discharge: 10/25/23
-
Pending Results: No
Hospital Course
Primary care physician: Jose Wheatley
Outpatient station repairer: Garfield Frost
Inpatient consultants: [facility] Cardiology
Procedures:
1. Right transfemoral TAVR #26 mm Gonzales MUNA 3
Primary Diagnosis:
1. Severe aortic stenosis (P/M: 52/31, mean 43.4 at cath)
Secondary Diagnoses:
1. HTN
2. HLD
3. CAD/FL
4. Peripheral neuropathy
5. Type II DM
6. Asthma
7. Diverticulosis
8. ED
9. Colon polyps
10. H/O head injury
11. AMEYA
12. Morbid obesity (BMI 38.9)
HPI: 73-year-old male electively admitted 10/24/2023 for TAVR due to severe aortic stenosis.
Hospital course: Patient underwent right transfemoral TAVR number 26 mm Gonzales MUNA [address] Jourdan Martin. Patient received no blood products. Patient initially was on Levophed which was quickly weaned off. Patient will continue aspirin
monotherapy for tissue valve replacement. Postoperative EKG reported sinus rhythm. Bilateral groin sites are intact without erythema, bleeding, or hematoma. Patient will resume metformin on 10/25 with evening dose. Predischarge TTE reported
Home medication changes:
Discharge Plan
-
Patient Disposition: Home (Routine Discharge)
Discharge Diagnosis/Procedures: TF-TAVR
Condition: Good
Diet: Low Cholesterol and 2 Gram Sodium
Activity: As tolerated
Driving Restrictions: No driving for 1 week
Bathing Restrictions: OK to Shower
Others Tests: 30 Day Follow Up Echocardiogram is scheduled at the [facility] on 11/26/2023 at 1:00pm.
Other Services: Cardiac Rehab
Wound Care: Please do not apply lotions, creams or powders to groin areas. Please monitor for increased pain, redness, swelling or drainage. Notify your doctor if any occur.
Specialty Instructions: Weigh Daily- Call MD for wt gain/loss 3 lbs overnight/5 lbs in 1 week
Referrals:
CT Transitional Care Nurse [Outside] (The Cardiothoracic Transitional Care Nurse will call you to set up a visit in 1-2 days.)
Rosa Cuellar CRNP [Specified Professional Personl] - 11/27/23 10:40 am
Jose Booker MD [Family Provider] -
Prescriptions:
Continued
albuterol sulfate 90 mcg/actuation Hfa Aerosol Inhaler
2 puff INHALATION Q6HPRN PRN (Reason: SOB, Wheezes)
atorvastatin 40 mg Tablet
40 mg PO QPM
aspirin 81 mg Tablet,Delayed Release (Dr/Ec)
81 mg PO DAILY
metoprolol succinate 25 mg Tablet Extended Release 24 Hr
25 mg PO DAILY
cholecalciferol (vitamin D3) [Vitamin D3] 25 mcg (1,000 unit) Capsule
25 mcg PO DAILY
berberine-herbal comb no.18 Capsule
1 cap PO QPM
Patient Comments:
Berberine,[place] Cinnamon, Chromium Picolinate, Tumeric Curcumin, Apple Cider Vinegar
magnesium citrate 125 mg Capsule
500 mg PO DAILY
Probiotic
60 billion cells PO DAILY
Tart Overton Extract
300 mg PO QPM
omega 6-eui-[id number]-fish oil
3,600 mg PO DAILY
Patient Comments:
3600 Fish Oil; EPA-1296; DHA- 864
cyanocobalamin (vitamin B-12) 500 mcg Tablet
500 mcg PO DAILY
fluticasone propionate 50 mcg/actuation Baker,Suspension
1 spray INTRANASAL DAILYPRN PRN (Reason: congestion)
lutein 20 mg Tablet
20 mg PO DAILY
alpha lipoic acid 600 mg Tablet
600 mg PO DAILY
Held
metformin 500 mg Tablet
500 mg PO BID@0800,1700 Qty: 0 0RF
Hold Instructions: Resume on 10/26/23. resume 10/25 with evening dose
Rx Instructions:
resume on tomorrow
Discharge Orders:
Discharge Patient (As Directed); Ordered 10/25/23
Ordered By: Ana M Wood
Care Plan Goals
Care Plan Goals:
Problem: Readiness for enhanced knowledge related to diagnosis and treatment plan
Goal: Understand your diagnosis and treatment plan needs, including medications if applicable.
Instructions: Know your diagnosis, underlying causes and treatment plan options, including medications if applicable. Consult with your health care team to learn about your diagnosis and treatment plan, including medications if applicable.
Discharge Date and Time
Print Language: BURKINAN
--- NOTE | 2023-10-25 08:30 | W.PN.CD ---
Today's Communication / Plan
-
Routine post TAVR care.
Echocardiogram pending.
Aspirin 81 mg daily.
Discharge planning, likely later today.
Impression / Plan
-
Impression/Plan: 73 y/o male with NIDDM, HTN, HLD, medically managed CAD and severe aortic valve stenosis admitted for elective TAVR.
#Severe aortic valve stenosis
-S/P successful #26 Gonzales MUNA S3 Ultra THV via right common femoral approach, 10/24/2023.
-Transient LBBB in the lab, resolved. Telemetry shows [ ].
-Bilateral femoral access sites are C/D/I.
-Antithrombotic therapy with aspirin 81 mg daily.
-Echocardiogram pending.
#CAD
-Chronic, stable.
-Medically managed.
-ASA and high dose, high potency statin.
#HLD
-Chronic, stable.
-Resume atorvastatin 40 mg daily.
#NIDDM
-Chronic, stable.
-Resume metformin.
#HTN
-Chronic, stable.
-Resume metoprolol.
#PPx
-SCD's for DVT/VTE.
-No role for PPI.
#Dispo
-IVU status.
-Discharge planning.
Subjective/Interval History:
No acute events.
No subjective complaints.
Physical Exam
Vital Signs/Labs
Vital Signs
Temp Pulse Resp BP Pulse Ox
37.2 C 73 16 148/80 94
10/25/23 07:38 10/25/23 07:38 10/25/23 07:38 10/25/23 02:45 10/25/23 07:38
10/23/23 10/24/23 10/25/23
11:59 11:59 11:59
Actual Weight 105.9 kg 104 kg
10/25/23 03:02
10/25/23 03:02
PT 13.7 Sec (11.4-14.6) 10/15/23 12:10
INR 1.07 10/15/23 12:10
APTT 24.9 Sec (23.4-35.0) 10/15/23 12:10
10/15/23
12:10
Tne-Y-Ncusbqwmqoz Pept 98.3
Physical Exam
Constitutional: No acute distress and Comfortable
EENT: Anicteric and Moist mucous membranes
Cardiovascular: Rhythm & rate is regular, Pedal edema is absent, JVD pressure is normal, S1S2 is normal and Murmur/rub/gallop absent
Respiratory: Respiratory effort normal, Lungs clear to auscul., Wheeze Absent, Crackles Absent and Rhonchi Absent
GI: Soft, Distention absent, Flat and Non tender
Neuro/Psych: AO x 3
Other: Cath Site (Bilateral femoral access sites are C/D/I.)
Data Reviewed
-
Date of Service: October 25, 2023
Medical Decision Making: Reviewed Test Results, Independent Historian Assessment and Test Interpretation
EKG: Tracing Personally Visualized and interpreted and Report Reviewed by me
Echo: Tracing Personally Visualized and interpreted
X-Ray/CT/US/MRI/NUC/PET: Image Personally Visualized and interpreted and Report Reviewed by me
Medical Tests (PFT, Pathology etc): Image Personally Visualized and interpreted and Report Reviewed by me
Labs: Labs Reviewed by me
[2023-10-25] MEDS: THERAGRAN 1 TABLET PO (09:56)
[2023-10-25] MEDS: ASPIR LOW (ENTERIC COATED) 81 MG PO (09:56)
[2023-10-25] MEDS: TOPROL XL 25 MG PO (09:56)
[2023-10-25] MEDS: VITAMIN B-12 500 MCG PO (09:56)
[2023-10-25] MEDS: VITAMIN D3 (cholecalciferol) 25 MCG PO (09:57)
--- NOTE | 2023-10-25 10:58 | CM ---
Chart reviewed. Patient is independent of ADLS, lives with his and daughter, in a 2 [address], 3 [facility], 0 DME. Plan is for the patient to return home with CT Transitional RN. CM to follow
[2023-10-25 11:43] VITALS: BP 134/81
--- NOTE | 2023-10-25 11:55 | PTCARENOTE ---
Assumed care of patient from prior RN. AAO x 3 ambulating at twyla in room. Pt c/o frequent dry cough. Lungs clear but decreased t/o bilaterally. SR 80's. Good appetite, voiding w/o issue. Bilateral groin dressings c,d,i. Pulses palpable.
[2023-10-25 12:05] LABS: Glucose - Point of Care 87 mg/dl (70-99)
[2023-10-25 12:46] VITALS: BP 165/82; BP 177/79; PULSE 93; O2SAT 94
--- NOTE | 2023-10-25 13:28 | PTCARENOTE ---
Discharge instructions reviewed with patient and spouse. Telemetry pack and int removed. Wheeled to car by Volunteer.
== END 2023-10-25 13:49 | disposition home or self-care (01) | DRG 267 ==
LOC: IVU 09:34
PROVIDERS: Nurse Practitioner Acute Care; Physician Assistant Medical; ADMITTING PHYSICIAN Thoracic Surgery (Cardiothoracic Vascular Surgery); FAMILY PHYSICIAN Family Medicine
PROC: 02RF38Z Replacement of Aortic Valve with Zooplastic Tissue, Percutaneous Approach (ICD-10-PCS; 2023-10-24)
DX: I35.0 Nonrheumatic aortic (valve) stenosis (principal); Z00.6 Encounter for examination for normal comparison and control in clinical research program; C64.2 Malignant neoplasm of left kidney, except renal pelvis; J45.909 Unspecified asthma, uncomplicated; I25.10 Atherosclerotic heart disease of native coronary artery without angina pectoris; K57.30 Diverticulosis of large intestine without perforation or abscess without bleeding; E78.00 Pure hypercholesterolemia, unspecified; E11.42 Type 2 diabetes mellitus with diabetic polyneuropathy; E88.810 Metabolic syndrome; E66.01 Morbid (severe) obesity due to excess calories; I10 Essential (primary) hypertension; G47.33 Obstructive sleep apnea (adult) (pediatric); I25.2 Old myocardial infarction; Z11.52 Encounter for screening for COVID-19; Z68.34 Body mass index [BMI] 34.0-34.9, adult; Z79.82 Long term (current) use of aspirin; Z79.84 Long term (current) use of oral hypoglycemic drugs; Z79.899 Other long term (current) drug therapy; Z82.49 Family history of ischemic heart disease and other diseases of the circulatory system; Z87.891 Personal history of nicotine dependence; Z98.61 Coronary angioplasty status
CPT/HCPCS: 93308; 33361; 36415; 71045; 71046; 76937; 80048; 80053; 81003; 82248; 82962; 83036; 83880; 85025; 85027; 85347; 85610; 85730; 86850; 86900; 86901; 87070; 87811; 93005; 93306; 93321; 93325; C1760; C1769; C1894; Q9950; Q9967

== ENCOUNTER → 2023-11-26 12:48 | Outpatient (REF) | payer MEDICARE, OTHER, SELFPAY | LOC: HWRCS 12:48 | PROVIDERS: ATTENDING PHYSICIAN Internal Medicine Cardiovascular Disease; FAMILY PHYSICIAN Family Medicine | DX: I35.0 Nonrheumatic aortic (valve) stenosis (principal) | CPT/HCPCS: 93306 ==

== ENCOUNTER 2023-12-05 06:14 | Inpatient (IN) | payer MEDICARE, OTHER, SELFPAY ==
--- NOTE | 2023-12-03 15:24 | PTCARENOTE ---
Patients 10/24 EKG abnormal- reviewed by Dr. Martines, no additional interventions required
[2023-12-05] VITALS (16 sets, daily range): BP systolic 137–171; BP diastolic 69–111; BMI 35.3
[2023-12-05 06:27] LABS: Glucose - Point of Care 135 mg/dl (70-99)
[2023-12-05] MEDS: NORMOSOL-R 1000 IV (06:44)
[2023-12-05 08:57] LABS: Glucose - Point of Care 127 mg/dl (70-99)
--- NOTE | 2023-12-05 10:42 | W.IMMPOSTOP ---
Surgical Immed Post Op Note
-
Primary Surgeon: Joyce
Assisting Surgeon: Jim
Pre-op Diagnosis: Left renal mass suspicious for RCC
Post-op Diagnosis: Same
Procedure Performed: Laparoscopic (hand-assist) left radical nephrectomy
Anesthesia Type: GETA, local, TAP block
Specimen / Cultures: Left kidney w/ Gerota's facia
Estimated Blood Loss: 20 cc
Drains: 16Fr Pérez catheter
Complications: None
Operative Findings:
Excellent hemostasis at renal hilum and resection bed in low pressure state.
No gross evidence of extrarenal disease or metastatic disease.
[2023-12-05 11:02] LABS: Glucose - Point of Care 174 mg/dl (70-99)
[2023-12-05] MEDS: DILAUDID 0.25 MG IV (11:23)
[2023-12-05] MEDS: NSS 1000 IV ×2 (12:47→23:24)
--- NOTE | 2023-12-05 12:51 | PTCARENOTE ---
Patient received from PACU in bed; IVF infusing; Patient on 2LC NC at this time; Surgical site assessed with GLASSWARE DEFECT REPAIRER, 2 puncture sites, 2 lap sites, and 1 long incision in the LLQ, open to air with surgical glue present; Reports moderate pain to
surgical site; Indwelling urinary catheter in place draining clear yellow urine; Patient reports nausea at this time but denies vomiting; Patient drowsy but alert to self, place, and time
[2023-12-05] MEDS: TYLENOL #3 1 TABLET PO ×2 (15:09→22:27)
--- NOTE | 2023-12-05 16:03 | CON.HOSP ---
Family Physician
-
Family Physician: Jose Booker
Chief Complaint
-
Elevated blood pressure
History of Present Illness
73-year-old male, PMH NIDDM, hypertension, TAVR 10/2023, presented with routine laparoscopic radical nephrectomy for left renal mass suspicious for RCC.
Hospitalist service was consulted for management of his elevated blood pressure.
Medical History
Past Medical History
Additional Past Medical History:
NIDDM
hypertension
TAVR 10/2023
CAD
Past Surgical History: Reports Other
Additional Past Surgical History:
TAVR October 2023
Laparoscopic L radical nephrectomy December 05, 2023
Social History
Tobacco: Non-smoker
Alcohol: None
Family History
Family History: Reviewed & Not Pertinent
Allergies / Home Medications
Allergies reflects when Allergies were last updated in [email or web address].
Home Medications with original date entered in [email or web address]
Allergy/Medication List:
Allergies
Allergy/AdvReac Type Severity Reaction Status Date / Time
Penicillins Allergy told in Verified 12/05/23 06:32
childhood
Home Medications
Tart Overton Extract 300 mg PO QPM Supplement 08/13/23
albuterol sulfate 90 mcg/actuation aerosol inhaler 2 puff inhalation Q6HPRN PRN SOB, Wheezes 08/13/23
aspirin 81 mg tablet,delayed release 81 mg PO DAILY Blood Clot Prevention/Tx 08/13/23
atorvastatin 40 mg tablet 40 mg PO QPM High Cholesterol 08/13/23
berberine-herbal comb no.18 capsule 1 cap PO QPM Supplement 08/13/23
cholecalciferol (vitamin D3) 25 mcg (1,000 unit) capsule (Vitamin D3) 25 mcg PO DAILY Supplement 08/13/23
fish oil-dha-epa 3,600 mg PO DAILY Supplement ##0 08/13/23
metoprolol succinate 25 mg tablet,extended release 24 hr 25 mg PO DAILY Blood Pressure 08/13/23
cyanocobalamin (vitamin B-12) 500 mcg tablet 500 mcg PO DAILY Supplement 08/16/23
fluticasone propionate 50 mcg/actuation nasal spray,suspension 1 spray intranasal DAILYPRN PRN congestion 08/16/23
lutein 20 mg tablet 20 mg PO DAILY Supplement 08/16/23
Prebiotic/Probiotic 1 cap PO DAILY 12/03/23
metformin 500 mg tablet 500 mg PO BID 12/03/23
Review of Systems
-
Abdomen/GI: Reports No Symptoms
Physical Exam
Vital Signs
Vital Signs
Temp Pulse Resp BP Pulse Ox
36.8 C 78 19 170/96 96
12/05/23 14:39 12/05/23 15:30 12/05/23 15:30 12/05/23 15:30 12/05/23 15:30
Physical Exam
General: Well Developed, Well Nourished, No Apparent Distress and Comfortable
HEENT: Normocephalic, Moist Mucous Membranes and Atraumatic
Respiratory: Clear
Cardiac: S1/S2 and Regular Rhythm; Negative Murmur or Rub
GI: Soft, Non Tender, Non Distended and Normal Bowel Sounds
Rectal: Deferred by Provider
Musculoskeletal: No Clubbing, No Cyanosis and No Edema
Neuro: Awake and Alert
Psych: Calm and Intact Judgement
Data Reviewed
-
Lab Data: Labs Reviewed
Impression / Plan
-
73-year-old male, PMH NIDDM, hypertension, TAVR 10/2023, presented with routine laparoscopic radical nephrectomy for left renal mass suspicious for RCC.
Hospitalist service was consulted for management of his elevated blood pressure.
A/P:
# Routine laparoscopic radical nephrectomy for left renal mass suspicious for RCC
post op care per Renal
Cont SCD for DVT ppx
# Severe aortic valve stenosis s/p TAVR 10/24/2023
# CAD, stable.
Cont [employer]LECT[employer] SERVICER ASA and Lipitor
# HLD
Cont ELECT[employer]IC V[employer] GAMES SERVICER Lipitor
# NIDDM
Cover with ISS during hospital stay
OK to hold metformin while inpt.
# Essential HTN
Resume metoprolol.
DVT ppx: Cont SCD for DVT ppx
FC
[2023-12-05] MEDS: GLUCOPHAGE 500 MG PO (16:21)
[2023-12-05 17:11] LABS: Glucose - Point of Care 149 mg/dl (70-99)
[2023-12-05] MEDS: LIPITOR 40 MG PO (17:13)
[2023-12-05 21:38] LABS: Glucose - Point of Care 137 mg/dl (70-99)
[2023-12-06 03:28] VITALS: BP 131/66
[2023-12-06] MEDS: TYLENOL #3 1 TABLET PO (03:45)
[2023-12-06] MEDS: MYLICON 80 MG PO (04:05)
[2023-12-06 05:35] LABS: % Basophils 0.1 % (0-2); % Eosinophils 0.1 % (0-6); % Immature Granulocytes 0.6 % (0-0.5); % Lymphocytes 6.9 % (20.5-51.1); % Monocytes 8.7 % (1.7-9.3); % Neutrophils 83.6 % (42.2-75.2); Absolute Immature Granulocytes 0.1 10^3/uL (0-0.05); Absolute Lymphocytes 1.1 10^3/uL (1.2-3.4); Absolute Monocytes 1.4 10^3/uL (0.1-0.6); Absolute Neutrophils 13.1 10^3/uL (1.4-6.5); Hematocrit 40.8 % (39.0-52.0); Hemoglobin 13.5 g/dL (13.0-18.0); Mean Corp Hgb Conc. 33.1 g/dL (33.0-37.0); Mean Corpuscular Hgb 28.5 pg (27.0-31.0); Mean Corpuscular Volume 86.1 fL (80.0-94.0); Mean Platelet Volume 9.8 fL (7.4-10.4); Nucleated Red Blood Cells % 0 % (-); Platelet Count 177 10^3/uL (130-400); Red Blood Cell Count 4.74 10^6/uL (4.70-6.10); Red Cell Dist. Width 14.5 % (11.5-14.5); White Blood Cell Count 15.7 10^3/uL (4.8-10.8)
[2023-12-06 06:03] LABS: Blood Urea Nitrogen 25 mg/dl (9-20); Calcium 8.6 mg/dl (8.4-10.2); Carbon Dioxide 23 mmol/L (22-30); Chloride 103 mmol/L (98-107); Estimated Creatinine Clearance 61 ml/min; Glucose 128 mg/dl (70-99); Magnesium 2.9 mg/dl (1.6-2.3); Potassium 4.8 mmol/L (3.5-5.1); Sodium 137 mmol/L (135-145); eGFR > 60.00
[2023-12-06 06:50] LABS: Hepatitis C Antibody Negative (Negative)
[2023-12-06 07:00] VITALS: BP 156/75
--- NOTE | 2023-12-06 07:28 | W.PN.URO.CBU ---
Today's Communication / Plan
-
D/c Pérez catheter
D/c IVF
OOB and ambulating
IS teaching reviewed, wean O2 today
PO analgesics prn encouraged
Appreciate Hospitalist assistance w/ BP and BG control
Potential d/c home later today
Assessment / Plan
-
Left renal mass
12/04: s/p laparoscopic (hand-assist) left radical nephrectomy
WBC 15 - likely post-op inflammatory changes
Cr 1.2 (baseline 0.8 pre-nephrectomy)
Diagnosis
-
Date of Service: December 06, 2023
-
Patient Diagnosis:
Left renal mass
Post Op Day:
12/04: s/p laparoscopic (hand-assist) left radical nephrectomy
Subjective
-
Tolerating diet.
Only taking Tylenol #3 to minimize narcotics.
Notes mild to moderate lower abdominal pain.
On minimal supplemental O2.
Objective
-
Vital Signs
Temp Pulse Resp BP Pulse Ox
98.3 F 64 18 156/75 98
12/06/23 07:00 12/06/23 07:00 12/06/23 07:00 12/06/23 07:00 12/06/23 07:00
Intake and Output
12/05/23 12/06/23 12/07/23
06:59 06:59 06:59
Intake Total 1720 / 1720
Output Total 1325 / 1325
Balance 395 / 395
Intake:
Oral fluids 720 / 720
IV fluids (Total) 1000 / 1000
normosol 100 / 100
Output:
Urine, Pérez 1325 / 1325
Laboratory Results
12/06/23 04:17
12/06/23 04:17
Physical Exam
-
General - well developed, well nourished, no acute distress
Abdomen - soft, non-tender, non-tender, no CVAT, no incisional pain or distention
Genitalia - normal, Pérez catheter w/ clear yellow urine
Skin - warm & dry with no rash
Neuro - AOx3, no motor deficits
Extremities - no clubbing, no cyanosis, no edema
Incision - clean, dry, surgical glue intact
Counseling
-
Discussed plan of care w/ RN.
Care Review
Data Reviewed
Discussed with: Hospitalist and Nursing
[2023-12-06 07:44] LABS: Glucose - Point of Care 131 mg/dl (70-99)
[2023-12-06] MEDS: TOPROL XL 25 MG PO (08:16)
[2023-12-06] MEDS: VITAMIN D3 (cholecalciferol) 25 MCG PO (08:16)
[2023-12-06] MEDS: VITAMIN B-12 500 MCG PO (08:17)
[2023-12-06] MEDS: VISBIOME 1 CAP PO (08:17)
[2023-12-06] MEDS: GLUCOPHAGE 500 MG PO (08:17)
[2023-12-06 09:11] LABS: Glycohemoglobin (HgbA1c) 6.3 % (4.0-5.6)
[2023-12-06] MEDS: ROXICODONE 5 MG PO ×2 (10:21→14:47)
[2023-12-06 11:00] VITALS: BP 137/74
[2023-12-06 11:39] LABS: Glucose - Point of Care 133 mg/dl (70-99)
--- NOTE | 2023-12-06 12:26 | W.PN.HOSP.TC ---
Today's Communication/Plan
-
see A/P
Assessment / Plan
Assessment / Plan
73-year-old male, PMH NIDDM, hypertension, TAVR 10/2023, presented with routine laparoscopic radical nephrectomy for left renal mass suspicious for RCC.
Hospitalist service was consulted for management of his elevated blood pressure.
A/P:
# Routine laparoscopic radical nephrectomy for left renal mass suspicious for RCC
post op care per Renal
Cont SCD for DVT ppx
# Post op leucocytosis suspect reactive
Pt afebrile
# Severe aortic valve stenosis s/p TAVR 10/24/2023
# CAD, stable.
Cont CELLAR PUMPER ASA and Lipitor
# HLD
Cont CELLAR PUMPER Lipitor
# NIDDM
A1C 6.3%
Cover with ISS during hospital stay
OK to hold metformin while inpt.
# Essential HTN
Resumed CELLAR PUMPER metoprolol.
IV hydralazine PRN
DVT ppx: Cont SCD for DVT ppx
FC
DW Uro
Anticipated Discharge: Within 24 hours
Subjective/Interval History
-
Date of Service: December 06, 2023
Objective Data
-
Labs:
Laboratory Results
12/06/23
04:17
WBC 15.7 H
Hgb 13.5
Hct 40.8
Plt Count 177
Sodium 137
Potassium 4.8
Chloride 103
Carbon Dioxide 23
BUN 25 H
Creatinine 1.2
Glucose 128 H
Calcium 8.6
Vital Signs:
Vital Signs
Temp Pulse Resp BP Pulse Ox
36.8 C 70 18 137/74 96
12/06/23 11:00 12/06/23 11:00 12/06/23 11:00 12/06/23 11:00 12/06/23 11:00
I&O
12/05/23 12/06/23 12/07/23
06:59 06:59 06:59
Intake Total 1720 / 1720
Output Total 1325 / 1325
Balance 395 / 395
Review of Systems
-
All other systems: Reviewed and negative
Physical Exam
-
General: Well Developed, Well Nourished, No Apparent Distress and Comfortable
Respiratory: Clear to Auscultation
Cardiac: Regular Rhythm and S1/S2
Neuro: Awake
Psych: Calm and Intact Judgement/Insight
Data Reviewed
-
Labs: Labs Reviewed by me
--- NOTE | 2023-12-06 14:00 | W.DS.TRANS ---
DC Summary - Production Specialist
-
Discharge Instructions:
Discharge Diagnosis/Procedures left renal mass s/p laparoscopic left radical
nephrectomy
Diet Regular
Activity No strenuous activity
Additional Activity No strenuous activity, heavy lifting (>20 lbs),
or exercise for 3-[address] Cook
Driving Restrictions No driving for 24 hours
Bathing Restrictions None
Blood Work n/a
Others Tests n/a
Wound Care OK to shower and let skin glue dissolve on its
own
Instructions:
Stand-Alone Forms:
Changes to Home Medications: No
Discharge Medications:
DC Medications w/original date entered in [employer]
Tart Overton Extract 300 mg PO QPM Supplement 08/13/23
albuterol sulfate 90 mcg/actuation aerosol inhaler 2 puff inhalation Q6HPRN PRN SOB, Wheezes 08/13/23
aspirin 81 mg tablet,delayed release 81 mg PO DAILY Blood Clot Prevention/Tx 08/13/23
atorvastatin 40 mg tablet 40 mg PO QPM High Cholesterol 08/13/23
berberine-herbal comb no.18 capsule 1 cap PO QPM Supplement 08/13/23
cholecalciferol (vitamin D3) 25 mcg (1,000 unit) capsule (Vitamin D3) 25 mcg PO DAILY Supplement 08/13/23
fish oil-dha-epa 3,600 mg PO DAILY Supplement ##0 08/13/23
metoprolol succinate 25 mg tablet,extended release 24 hr 25 mg PO DAILY Blood Pressure 08/13/23
cyanocobalamin (vitamin B-12) 500 mcg tablet 500 mcg PO DAILY Supplement 08/16/23
fluticasone propionate 50 mcg/actuation nasal spray,suspension 1 spray intranasal DAILYPRN PRN congestion 08/16/23
lutein 20 mg tablet 20 mg PO DAILY Supplement 08/16/23
Prebiotic/Probiotic 1 cap PO DAILY 12/03/23
metformin 500 mg tablet 500 mg PO BID 12/03/23
acetaminophen 300 mg-codeine 30 mg tablet 1 tab PO Q8H PRN mild to moderate pain 5 days #15 tabs 12/06/23
docusate sodium 100 mg capsule (Colace) 100 mg PO BID PRN constipation 5 days #10 caps 12/06/23
Home Medication Changes
Pending Results: Yes
Additional Pending Results:
surgical pathology
[2023-12-06 15:00] VITALS: BP 110/64
--- NOTE | 2023-12-06 15:53 | CM ---
Patient medically cleared for discharge to home with no additional skilled services. Met with patient who does not feel he needs any VN services. Family will transport home.
[2023-12-06 16:27] LABS: Glucose - Point of Care 103 mg/dl (70-99)
== END 2023-12-06 16:55 | disposition home or self-care (01) | DRG 661 ==
LOC: 2 SOUTH 06:14
PROVIDERS: ADMITTING PHYSICIAN Surgery; CONSULT PHYSICIAN Internal Medicine; FAMILY PHYSICIAN Family Medicine
PROC: 0TT14ZZ Resection of Left Kidney, Percutaneous Endoscopic Approach (ICD-10-PCS; 2023-12-05)
DX: N28.89 Other specified disorders of kidney and ureter (principal)
CPT/HCPCS: 88307; 80048; 82962; 83036; 83735; 85025; 86803; 86850; 86900; 86901

== ENCOUNTER → 2024-02-17 13:32 | Outpatient (REF) | payer MEDICARE, OTHER, SELFPAY | LOC: PAVMRI 13:32 | PROVIDERS: ATTENDING PHYSICIAN Surgery; FAMILY PHYSICIAN Family Medicine | DX: C64.2 Malignant neoplasm of left kidney, except renal pelvis (principal) | CPT/HCPCS: 74183; A9575 ==

== ENCOUNTER → 2024-02-24 10:09 | Outpatient (REF) | payer MEDICARE, OTHER, SELFPAY | LOC: HWRAD 10:09 | PROVIDERS: ATTENDING PHYSICIAN Surgery; FAMILY PHYSICIAN Family Medicine | DX: N50.89 Other specified disorders of the male genital organs (principal) | CPT/HCPCS: 76870; 93976 ==

== ENCOUNTER 2024-03-06 10:28 | Outpatient (RCR) | payer MEDICARE, OTHER, SELFPAY ==
[2024-02-24 08:58] LABS: Glucose - Point of Care 149 mg/dl (70-99)
[2024-02-24 09:30] LABS: Glucose - Point of Care 104 mg/dl (70-99)
[2024-02-26 09:27] LABS: Glucose - Point of Care 128 mg/dl (70-99)
[2024-02-26 10:18] LABS: Glucose - Point of Care 126 mg/dl (70-99)
[2024-02-28 09:24] LABS: Glucose - Point of Care 133 mg/dl (70-99)
[2024-02-28 10:06] LABS: Glucose - Point of Care 132 mg/dl (70-99)
[2024-03-02 09:26] LABS: Glucose - Point of Care 113 mg/dl (70-99)
[2024-03-02 10:11] LABS: Glucose - Point of Care 99 mg/dl (70-99)
[2024-03-04 09:19] LABS: Glucose - Point of Care 102 mg/dl (70-99)
[2024-03-04 09:58] LABS: Glucose - Point of Care 78 mg/dl (70-99)
[2024-03-04 10:15] LABS: Glucose - Point of Care 100 mg/dl (70-99)
[2024-03-06 09:25] LABS: Glucose - Point of Care 124 mg/dl (70-99)
[2024-03-06 10:13] LABS: Glucose - Point of Care 110 mg/dl (70-99)
== END 2024-03-06 23:59 | disposition home or self-care (01) ==
LOC: CRHB 10:28
PROVIDERS: ATTENDING PHYSICIAN Internal Medicine Cardiovascular Disease
DX: I25.10 Atherosclerotic heart disease of native coronary artery without angina pectoris (principal); Z95.4 Presence of other heart-valve replacement
CPT/HCPCS: 82962; G0422; G0423

== ENCOUNTER 2024-04-06 10:03 | Outpatient (RCR) | payer MEDICARE, OTHER, SELFPAY ==
[2024-03-11 09:24] LABS: Glucose - Point of Care 114 mg/dl (70-99)
[2024-03-11 10:11] LABS: Glucose - Point of Care 84 mg/dl (70-99)
[2024-03-13 09:20] LABS: Glucose - Point of Care 115 mg/dl (70-99)
[2024-03-13 10:04] LABS: Glucose - Point of Care 87 mg/dl (70-99)
[2024-03-16 09:27] LABS: Glucose - Point of Care 115 mg/dl (70-99)
[2024-03-16 10:18] LABS: Glucose - Point of Care 109 mg/dl (70-99)
[2024-03-18 09:21] LABS: Glucose - Point of Care 122 mg/dl (70-99)
[2024-03-18 10:11] LABS: Glucose - Point of Care 104 mg/dl (70-99)
[2024-03-20 09:28] LABS: Glucose - Point of Care 121 mg/dl (70-99)
[2024-03-20 10:23] LABS: Glucose - Point of Care 95 mg/dl (70-99)
== END 2024-04-06 23:59 | disposition home or self-care (01) ==
LOC: CRHB 10:03
PROVIDERS: ATTENDING PHYSICIAN Internal Medicine Cardiovascular Disease
DX: I25.10 Atherosclerotic heart disease of native coronary artery without angina pectoris (principal); Z95.4 Presence of other heart-valve replacement
CPT/HCPCS: 82962; G0422; G0423

== ENCOUNTER 2024-05-06 09:48 | Outpatient (RCR) | payer MEDICARE, OTHER, SELFPAY ==
[2024-04-30 11:47] LABS: HDL Cholesterol 44 mg/dl; LDL Cholesterol, Calculated 48 mg/dl; Total Cholesterol 111 mg/dl (50-199); Triglyceride 96 mg/dl (10-149); Very Low Density Lipoprotein 19 mg/dl (0-30)
== END 2024-05-06 23:59 | disposition home or self-care (01) ==
LOC: CRHB 09:48
PROVIDERS: ATTENDING PHYSICIAN Internal Medicine Cardiovascular Disease
DX: I25.10 Atherosclerotic heart disease of native coronary artery without angina pectoris (principal); Z95.4 Presence of other heart-valve replacement
CPT/HCPCS: 36415; 80061; G0422; G0423

== ENCOUNTER 2024-05-25 10:33 | Outpatient (RCR) | payer MEDICARE, OTHER, SELFPAY | END 2024-05-25 23:59 | disposition home or self-care (01) | LOC: CRHB 10:33 | PROVIDERS: ATTENDING PHYSICIAN Internal Medicine Cardiovascular Disease | DX: I25.10 Atherosclerotic heart disease of native coronary artery without angina pectoris (principal); Z95.4 Presence of other heart-valve replacement | CPT/HCPCS: G0422; G0423 ==

== ENCOUNTER → 2024-05-26 07:40 | Outpatient (REF) | payer MEDICARE, OTHER, SELFPAY | LOC: MRI 3T 07:40 | PROVIDERS: ATTENDING PHYSICIAN Surgery; FAMILY PHYSICIAN Family Medicine | DX: C64.2 Malignant neoplasm of left kidney, except renal pelvis (principal) | CPT/HCPCS: 74183; A9575 ==

== ENCOUNTER → 2024-06-17 09:14 | Outpatient (REF) | payer MEDICARE, OTHER, SELFPAY | LOC: HWRCS 09:14 | PROVIDERS: ATTENDING PHYSICIAN Internal Medicine Cardiovascular Disease; FAMILY PHYSICIAN Family Medicine | DX: Z95.2 Presence of prosthetic heart valve (principal); I10 Essential (primary) hypertension; E78.2 Mixed hyperlipidemia; E66.01 Morbid (severe) obesity due to excess calories; N28.89 Other specified disorders of kidney and ureter | CPT/HCPCS: 93306 ==

== ENCOUNTER → 2024-07-17 07:42 | Outpatient (REF) | payer MEDICARE, OTHER, SELFPAY | LOC: HWRAD 07:42 | PROVIDERS: ATTENDING PHYSICIAN Surgery; FAMILY PHYSICIAN Family Medicine | DX: N50.89 Other specified disorders of the male genital organs (principal) | CPT/HCPCS: 76870; 93976 ==

== ENCOUNTER → 2024-11-27 12:20 | Outpatient (REF) | payer MEDICARE, OTHER, SELFPAY | LOC: PAVMRI 12:20 | PROVIDERS: ATTENDING PHYSICIAN Surgery; FAMILY PHYSICIAN Family Medicine | DX: C64.2 Malignant neoplasm of left kidney, except renal pelvis (principal) | CPT/HCPCS: 74183; A9575 ==

== ENCOUNTER → 2025-06-11 08:57 | Outpatient (REF) | payer MEDICARE, OTHER, SELFPAY | LOC: HWRCS 08:57 | PROVIDERS: ATTENDING PHYSICIAN Internal Medicine Cardiovascular Disease; FAMILY PHYSICIAN Family Medicine | DX: I35.8 Other nonrheumatic aortic valve disorders (principal); I25.2 Old myocardial infarction; I25.10 Atherosclerotic heart disease of native coronary artery without angina pectoris; I10 Essential (primary) hypertension | CPT/HCPCS: 93306 ==

== ENCOUNTER → 2025-06-17 08:23 | Outpatient (REF) | payer MEDICARE, OTHER, SELFPAY | LOC: PAVMRI 08:23 | PROVIDERS: ATTENDING PHYSICIAN Surgery; FAMILY PHYSICIAN Family Medicine; REFERRING PHYSICIAN Internal Medicine | DX: C64.2 Malignant neoplasm of left kidney, except renal pelvis (principal); K86.2 Cyst of pancreas | CPT/HCPCS: 74183; A9575 ==